=== PATIENT | female | born 1985 | race Caucasian/White ===

== ENCOUNTER 2018-08-09 12:09 | Emergency (ER) | payer OTHER ==
--- NOTE | 2018-08-09 13:51 | ER ---
Nurse's Notes [facility] Name: Angie Kaur Age: 32 yrs Sex: Female : 1985 Arrival Date: 08/09/2018 Time: 12:11 Bed 10 Private MD: Diagnosis: Acute pharyngitis;Otitis media, unspecified, left ear Presentation: 08/09 12:12 Presenting complaint: Patient states: cough and sore throat x 2 days ago. Transition of aa5 care: patient was not received from another setting of care. Onset of symptoms was July 2017. Risk Assessment: Do you want to hurt yourself or someone else? Patient reports no desire to harm self or others. Initial Sepsis Screen: Does the patient meet any 2 criteria? No. Patient's initial sepsis screen is negative. Does the patient have a suspected source of infection? No. Patient's initial sepsis screen is negative. Care prior to arrival: None. 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 - Social history:: Smoking status: Patient uses tobacco products, smokes one-half pack cigarettes per day. - Ebola Screening: : No symptoms or risks identified at this time. Screenin:55 Abuse screen: Denies threats or abuse. Denies injuries from another. Nutritional iw screening: No deficits noted. Tuberculosis screening: No symptoms or risk factors identified. Fall Risk None identified. Assessment: 12:55 General: Appears in no apparent distress. Behavior is calm, cooperative. Pain: iw Complains of pain in throat. Neuro: Level of Consciousness is awake, alert, obeys commands, Moves all extremities. Full function. Respiratory: Airway is patent Respiratory effort is even, unlabored, Breath sounds are clear bilaterally. EENT: Throat is clear is reddened bilaterally with gag reflex present. Musculoskeletal: Range of motion: intact in all extremities. Vital Signs: 12:13 BP 110 / 67; Pulse 99; Resp 18 S; Temp 97.8(TE); Pulse Ox 98% on R/A; Weight 68.04 kg aa5 (R); Height 5 ft. 7 in. (170.18 cm) (R); Pain 7/10; 12:13 Body Mass Index 23.49 (68.04 kg, 170.18 cm) aa5 ED Course: 12:11 Patient arrived in ED. aa5 12:11 Arm band placed on. aa5 12:13 Triage completed. aa5 12:18 Lawrence Mast NP is PHCP. pm1 12:18 Jagdish Stubbs MD is Attending Physician. pm1 12:55 Patient has correct armband on for positive identification. iw 14:00 No provider procedures requiring assistance completed. Patient did not have IV access iw during this emergency room visit. 14:01 Yolie Cobos RN is Primary Nurse. iw Administered Medications: No medications were administered Outcome: 13:51 Discharge ordered by . pm1 14:00 Discharged to home ambulatory. iw 14:00 Condition: good 14:00 Discharge instructions given to patient, Instructed on discharge instructions, follow up and referral plans. medication usage. 14:01 Patient left the ED. iw Signatures: Yolie Cobos RN RN Slime Richards RN RN aa Lawrence Mast NP TAKER OFF BRAKER MACHINE pm1 Corrections: (The following items were deleted from the chart) 14:08 12:14 Slime Richards RN is Primary Nurse. [facility] aa5 14:08 14:01 Primary Nurse role handed off by Slime Richards RN [facility]
--- NOTE | 2018-08-09 13:51 | EDPHYS ---
Physician Documentation [facility] Name: Angie Kaur Age: 32 yrs Sex: Female : 1985 Arrival Date: 08/09/2018 Time: 12:11 Bed 10 Private MD: ED Physician Jagdish Stubbs HPI: 08/09 13:38 This 32 yrs old Female presents to ER via Ambulatory with complaints of Sore pm1 Throat. 13:38 The patient presents with sore throat. The patient describes throat pain as constant, pm1 raw, scratchy. Onset: The symptoms/episode began/occurred 4 day(s) ago. Severity of symptoms: in the emergency department the symptoms are actually worse. Associated signs and symptoms: Pertinent negatives cough, diarrhea, earache, fever, flu-like symptoms, headache, nausea, vomiting. The patient has not recently seen a physician. Son with sore throat onset about 10 days ago that has resolved. 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 - Social history:: Smoking status: Patient uses tobacco products, smokes one-half pack cigarettes per day. - Ebola Screening: : No symptoms or risks identified at this time. ROS: 13:38 Constitutional: Negative for fever, chills, and weight loss, Eyes: Negative for injury, pm1 pain, redness, and discharge. 13:38 Neck: Negative for injury, pain, and swelling, Cardiovascular: Negative for chest pain, palpitations, and edema, Respiratory: Negative for shortness of breath, cough, wheezing, and pleuritic chest pain, Abdomen/GI: Negative for abdominal pain, nausea, vomiting, diarrhea, and constipation, Back: Negative for injury and pain, : Negative for injury, bleeding, discharge, and swelling, MS/Extremity: Negative for injury and deformity, Skin: Negative for injury, rash, and discoloration, Neuro: Negative for headache, weakness, numbness, tingling, and seizure. 13:38 ENT: Positive for drainage from ear(s), ear pain, sore throat, Negative for rhinorrhea, sinus congestion, sinus pain, difficulty swallowing, difficulty handling secretions, hoarseness. Exam: 13:38 Constitutional: This is a well developed, well nourished patient who is awake, alert, pm1 and in no acute distress. Head/Face: Normocephalic, atraumatic. Eyes: Pupils equal round and reactive to light, extra-ocular motions intact. Lids and lashes normal. Conjunctiva and sclera are non-icteric and not injected. Cornea within normal limits. Periorbital areas with no swelling, redness, or edema. 13:38 Neck: Trachea midline, no thyromegaly or masses palpated, and no cervical lymphadenopathy. Supple, full range of motion without nuchal rigidity, or vertebral point tenderness. No Meningismus. Chest/axilla: Normal chest wall appearance and motion. Nontender with no deformity. No lesions are appreciated. Cardiovascular: Regular rate and rhythm with a normal S1 and S2. No gallops, murmurs, or rubs. Normal PMI, no JVD. No pulse deficits. Respiratory: Lungs have equal breath sounds bilaterally, clear to auscultation and percussion. No rales, rhonchi or wheezes noted. No increased work of breathing, no retractions or nasal flaring. Abdomen/GI: Soft, non-tender, with normal bowel sounds. No distension or tympany. No guarding or rebound. No evidence of tenderness throughout. Back: No spinal tenderness. No costovertebral tenderness. Full range of motion. Skin: Warm, dry with normal turgor. Normal color with no rashes, no lesions, and no evidence of cellulitis. MS/ Extremity: Pulses equal, no cyanosis. Neurovascular intact. Full, normal range of motion. 13:38 ENT: External ear(s): are unremarkable, Ear canal(s): are normal, TM's: bulging, on the left, erythema, that is mild, on the left, Examination of the other ear shows no obvious abnormality, Nose: is normal, Mouth: is normal, Posterior pharynx: Tonsils: bilaterally enlarged, with erythema, with exudate, no ulcerations, peritonsillar mass, is not appreciated, pooling of secretions, is not appreciated. 13:38 Neuro: Orientation: is normal, Motor: is normal, Sensation: is normal, no obvious gross deficits. Vital Signs: 12:13 BP 110 / 67; Pulse 99; Resp 18 S; Temp 97.8(TE); Pulse Ox 98% on R/A; Weight 68.04 kg aa5 (R); Height 5 ft. 7 in. (170.18 cm) (R); Pain 7/10; 12:13 Body Mass Index 23.49 (68.04 kg, 170.18 cm) aa5 MDM: 12:19 Patient medically screened. pm1 13:50 Data reviewed: vital signs. Data interpreted: Pulse oximetry: on room air is 98 %. pm1 Interpretation: normal. Counseling: I had a detailed discussion with the patient and/or guardian regarding: the historical points, exam findings, and any diagnostic results supporting the discharge/admit diagnosis, lab results, the need for outpatient follow up, to return to the emergency department if symptoms worsen or persist or if there are any questions or concerns that arise at home. 08/09 12:19 Order name: Strep; Complete Time: 13:21 pm1 08/09 12:19 Order name: Flu; Complete Time: 13:21 pm1 08/09 13:17 Order name: Throat Culture EDMS Administered Medications: No medications were administered Disposition: 14:14 Co-signature as Attending Physician, Jagdish Stubbs MD I agree with the assessment and fernando plan of care. Disposition: 08/09/18 13:51 Discharged to Home. Impression: Acute pharyngitis, Otitis media, unspecified, left ear. - Condition is Stable. - Discharge Instructions: Otitis Media, Adult, Pharyngitis. - Prescriptions for Amoxicillin 500 mg Oral Capsule - take 1 capsule by ORAL route every 8 hours for 10 days; 30 tablet. Zyrtec- D 5-120 mg Oral Tablet Sustained Release 12 hr - take 1 tablet by ORAL route every 12 hours As needed; 20 tablet. - Work release form, Medication Reconciliation Form, Thank You Letter, Antibiotic Education form. - Follow up: Emergency Department; When: As needed; Reason: Worsening of condition. Follow up: Private Physician; When: 2 - 3 days; Reason: Recheck today's complaints, Continuance of care, Re-evaluation by your physician. - Problem is new. - Symptoms have improved. Signatures: Dispatcher [employer] EDMS Jagdish Stubbs MD MD cha Williams, Irene, RN RN Slime Richards RN RN aa5 Lawrence Mast NP PULPER pm1 Corrections: (The following items were deleted from the chart) 14:01 13:51 08/09/2018 13:51 Discharged to Home. Impression: Acute pharyngitis; Otitis media, iw unspecified, left ear. Condition is Stable. Forms are Medication Reconciliation Form, Thank You Letter, Antibiotic Education, Prescription Opioid Use. Follow up: Emergency Department; When: As needed; Reason: Worsening of condition. Follow up: Private Physician; When: 2 - 3 days; Reason: Recheck today's complaints, Continuance of care, Re-evaluation by your physician. Problem is new. Symptoms have improved. pm1
== END 2018-08-09 14:01 | disposition home or self-care (01) ==
LOC: ER 12:09
DX: J02.9 Acute pharyngitis, unspecified (principal); H66.92 Otitis media, unspecified, left ear; F17.210 Nicotine dependence, cigarettes, uncomplicated
CPT/HCPCS: 87070; 87081; 87804; 99281

== ENCOUNTER 2018-09-10 20:12 | Emergency (ER) | payer OTHER ==
--- NOTE | 2018-09-10 20:49 | ER ---
Nurse's Notes [facility] Name: Angie Kaur Age: 32 yrs Sex: Female : 1985 Arrival Date: 09/10/2018 Time: 20:15 Bed 14 Private MD: Diagnosis: Pain in right forearm Presentation: 09/10 20:16 Presenting complaint: Patient states: "I tripped in a pot hole and I landed on my arm, aj1 I skinned my arm and my knee and over the day I noticed my arm getting stiff, and its hard for me to lift anything" Reports that she fell around 0700 this morning. Transition of care: patient was not received from another setting of care. Onset of symptoms was September 10, 2018 at 07:00. Risk Assessment: Do you want to hurt yourself or someone else? Patient reports no desire to harm self or others. Initial Sepsis Screen: Does the patient meet any 2 criteria? No. Patient's initial sepsis screen is negative. Does the patient have a suspected source of infection? No. Patient's initial sepsis screen is negative. Care prior to arrival: None. 20:16 Method Of Arrival: Ambulatory aj1 20:16 Acuity: VAISHNAVI 4 aj1 Triage Assessment: 20:17 General: Appears in no apparent distress. uncomfortable, Behavior is calm, cooperative, aj1 appropriate for age. Pain: Complains of pain in right antecubital area, dorsal aspect of right forearm and right elbow Pain currently is 6 out of 10 on a pain scale. Neuro: Level of Consciousness is awake, alert, obeys commands. Cardiovascular: Patient's skin is warm and dry. Respiratory: Airway is patent Respiratory effort is even, unlabored, Respiratory pattern is regular, symmetrical. Musculoskeletal: Range of motion: limited in right elbow. 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 - Social history:: Smoking status: Patient uses tobacco products, smokes two packs cigarettes per day. - Ebola Screening: : Patient denies travel to an Ebola-affected area in the 21 days before illness onset. Screenin:45 Abuse screen: Denies threats or abuse. Nutritional screening: No deficits noted. tl2 Tuberculosis screening: No symptoms or risk factors identified. Fall Risk None identified. Assessment: 20:45 General: Appears in no apparent distress. Pain: Complains of pain in right hand and tl2 heel of right hand and right arm. Neuro: Level of Consciousness is awake, alert, obeys commands, Oriented to person, place, time, situation. Cardiovascular: Denies chest pain. Respiratory: Airway is patent Respiratory effort is even, unlabored, Respiratory pattern is regular, symmetrical. Derm: Skin is pink, warm \\T\\ dry. Wound noted heel of right hand Wound is blistered and reddened. Injury Description: Abrasion sustained to heel of right hand is scabbed, was sustained 6-12 hours ago. 21:06 Reassessment: Patient appears in no apparent distress at this time. Patient and/or tl2 family updated on plan of care and expected duration. Pain level reassessed. Patient is alert, oriented x 3, equal unlabored respirations, skin warm/dry/pink. pt verbalized understanding of discharge instructions,need for follow up, sling usage and prescription usage. Vital Signs: 20:17 BP 112 / 77; Pulse 87; Resp 18; Temp 98.2; Pulse Ox 98% on R/A; Weight 65.77 kg (R); aj1 Height 5 ft. 7 in. (170.18 cm) (R); Pain 6/10; 20:17 Body Mass Index 22.71 (65.77 kg, 170.18 cm) aj1 ED Course: 20:15 Patient arrived in ED. mr 20:17 Triage completed. aj1 20:17 Arm band placed on Patient placed in an exam room. aj1 20:24 Bethany Souza FNP-C is PHCP. kb 20:24 Jagdish Stubbs MD is Attending Physician. kb 20:40 X-ray completed. Portable x-ray completed in exam room. Patient tolerated procedure az well. 20:41 Forearm Right XRAY In Process Unspecified. EDMS 20:45 Patient has correct armband on for positive identification. Bed in low position. Call tl2 light in reach. Side rails up X 1. Adult w/ patient. 20:45 No provider procedures requiring assistance completed. Patient did not have IV access tl2 during this emergency room visit. 20:47 Destiny March, RN is Primary Nurse. tl2 21:06 Sling applied to right arm. tl2 Administered Medications: 21:02 Drug: Tetanus-Diphtheria Toxoid Adult 0.5 ml {Stockbroker: [employer]. Exp: tl2 07/29/2020. Lot #: [id number]. } Route: IM; Site: right deltoid; 21:07 Follow up: Response: No adverse reaction tl2 Outcome: 20:49 Discharge ordered by . edyta 21:06 Discharged to home ambulatory, with family. tl2 21:06 Condition: stable 21:06 Discharge instructions given to patient, family, Instructed on discharge instructions, follow up and referral plans. medication usage, Demonstrated understanding of instructions, follow-up care, medications, Prescriptions given X 2. 21:07 Patient left the ED. tl2 Signatures: Dispatcher [employer] EDMS Bethany Souza, CHRISTINE-C AWS ARCHITECT-Delaney Mac RN RN toney1 Alma Sanchez Destiny March RN RN tl2 Toña Cortez sd
--- NOTE | 2018-09-10 20:49 | EDPHYS ---
Physician Documentation [facility] Name: Angie Kaur Age: 32 yrs Sex: Female : 1985 Arrival Date: 09/10/2018 Time: 20:15 Bed 14 Private MD: ED Physician Jagdish Stubbs HPI: 09/10 20:31 This 32 yrs old Female presents to ER via Ambulatory with complaints of Arm kb Pain. 20:31 The patient or guardian complains of decreased range of motion, injury, pain. The kb complaints affect the right forearm. Context: The problem was sustained outdoors, resulted from a fall, while walking. Onset: The symptoms/episode began/occurred this morning. Treatment prior to arrival includes: no previous treatment. Modifying factors: The symptoms are alleviated by nothing. the symptoms are aggravated by movement, bending arm. Associated signs and symptoms: Pertinent positives: decreased range of motion, pain. Severity of symptoms: At their worst the symptoms were moderate, in the emergency department the symptoms are unchanged. The patient has not experienced similar symptoms in the past. The patient has not recently seen a physician. 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 - Social history:: Smoking status: Patient uses tobacco products, smokes two packs cigarettes per day. - Ebola Screening: : Patient denies travel to an Ebola-affected area in the 21 days before illness onset. ROS: 20:30 Constitutional: Negative for fever, chills, and weight loss, Cardiovascular: Negative kb for chest pain, palpitations, and edema, Respiratory: Negative for shortness of breath, cough, wheezing, and pleuritic chest pain, Abdomen/GI: Negative for abdominal pain, nausea, vomiting, diarrhea, and constipation, Skin: Negative for injury, rash, and discoloration, Neuro: Negative for headache, weakness, numbness, tingling, and seizure. 20:30 MS/extremity: Positive for injury or acute deformity, decreased range of motion, pain, tenderness, of the right forearm. Exam: 20:30 Constitutional: This is a well developed, well nourished patient who is awake, alert, kb and in no acute distress. Head/Face: Normocephalic, atraumatic. Chest/axilla: Normal chest wall appearance and motion. Nontender with no deformity. No lesions are appreciated. Cardiovascular: Regular rate and rhythm with a normal S1 and S2. No gallops, murmurs, or rubs. Normal PMI, no JVD. No pulse deficits. Respiratory: Lungs have equal breath sounds bilaterally, clear to auscultation and percussion. No rales, rhonchi or wheezes noted. No increased work of breathing, no retractions or nasal flaring. Abdomen/GI: Soft, non-tender, with normal bowel sounds. No distension or tympany. No guarding or rebound. No evidence of tenderness throughout. Neuro: Awake and alert, GCS 15, oriented to person, place, time, and situation. Cranial nerves II-XII grossly intact. Motor strength 5/5 in all extremities. Sensory grossly intact. Cerebellar exam normal. Normal gait. 20:30 Musculoskeletal/extremity: Extremities: grossly normal except: noted in the right forearm: decreased ROM, pain, ROM: limited active range of motion due to pain, in the right elbow, Circulation is intact in all extremities. Sensation intact. 20:31 Skin: injury, abrasion(s), small abrasion noted, of the heel of right hand. Vital Signs: 20:17 BP 112 / 77; Pulse 87; Resp 18; Temp 98.2; Pulse Ox 98% on R/A; Weight 65.77 kg (R); aj1 Height 5 ft. 7 in. (170.18 cm) (R); Pain 6/10; 20:17 Body Mass Index 22.71 (65.77 kg, 170.18 cm) aj1 MDM: 20:24 Patient medically screened. kb 20:29 Data reviewed: vital signs, nurses notes. Data interpreted: Pulse oximetry: on room air kb is 98 %. Interpretation: normal. 20:48 Counseling: I had a detailed discussion with the patient and/or guardian regarding: the kb historical points, exam findings, and any diagnostic results supporting the discharge/admit diagnosis, radiology results, the need for outpatient follow up, a orthopedic surgeon, to return to the emergency department if symptoms worsen or persist or if there are any questions or concerns that arise at home. 09/10 20:28 Order name: Forearm Right XRAY; Complete Time: 21:01 kb 09/10 20:49 Order name: Sling; Complete Time: 21:02 kb Administered Medications: 21:02 Drug: Tetanus-Diphtheria Toxoid Adult 0.5 ml {Clinical Trials Systems Administrator: [employer]. Exp: tl2 07/29/2020. Lot #: [id number]. } Route: IM; Site: right deltoid; 21:07 Follow up: Response: No adverse reaction tl2 Disposition: 09/10/18 20:49 Discharged to Home. Impression: Pain in right forearm. - Condition is Stable. - Discharge Instructions: Musculoskeletal Pain. - Prescriptions for Cyclobenzaprine 10 mg Oral Tablet - take 1 tablet by ORAL route every 8 hours As needed; 21 tablet. Diclofenac Sodium 75 mg Oral Tablet, Delayed Release (E.C.) - take 1 tablet by ORAL route 2 times per day As needed; 30 tablet. - Medication Reconciliation Form, Thank You Letter, Antibiotic Education, Prescription Opioid Use, Work release form form. - Follow up: Emergency Department; When: As needed; Reason: Worsening of condition. Follow up: Private Physician; When: 2 - 3 days; Reason: Recheck today's complaints, Continuance of care, Re-evaluation by your physician. Addendum: 09/13/2018 11:11 Co-signature as Attending Physician, Jagdish Stubbs MD I agree with the assessment and c youngblood plan of care. Signatures: Dispatcher [employer] EDCA Bethany Souza, CHRISTINE-C WATER RESOURCE ENGINEER-Delaney Mac RN RN aj1 Jagdish Stubbs MD MD cha Knox, Taylor, CHARLIE RN tl2 Corrections: (The following items were deleted from the chart) 09/10 20:31 20:30 Constitutional: This is a well developed, well nourished patient who is awake, kb alert, and in no acute distress. Head/Face: Normocephalic, atraumatic. Chest/axilla: Normal chest wall appearance and motion. Nontender with no deformity. No lesions are appreciated. Cardiovascular: Regular rate and rhythm with a normal S1 and S2. No gallops, murmurs, or rubs. Normal PMI, no JVD. No pulse deficits. Respiratory: Lungs have equal breath sounds bilaterally, clear to auscultation and percussion. No rales, rhonchi or wheezes noted. No increased work of breathing, no retractions or nasal flaring. Abdomen/GI: Soft, non-tender, with normal bowel sounds. No distension or tympany. No guarding or rebound. No evidence of tenderness throughout. Skin: Warm, dry with normal turgor. Normal color with no rashes, no lesions, and no evidence of cellulitis. Neuro: Awake and alert, GCS 15, oriented to person, place, time, and situation. Cranial nerves II-XII grossly intact. Motor strength 5/5 in all extremities. Sensory grossly intact. Cerebellar exam normal. Normal gait. kb 21:07 20:49 09/10/2018 20:49 Discharged to Home. Impression: Pain in right forearm. Condition tl2 is Stable. Forms are Medication Reconciliation Form, Thank You Letter, Antibiotic Education, Prescription Opioid Use. Follow up: Emergency Department; When: As needed; Reason: Worsening of condition. Follow up: Private Physician; When: 2 - 3 days; Reason: Recheck today's complaints, Continuance of care, Re-evaluation by your physician. kb
--- NOTE | 2018-09-10 20:57 | RAD REPORT ---
EXAM DESCRIPTION: RAD - Forearm Right - 09/10/2018 8:41 pm CLINICAL HISTORY: Trip and fall, right arm pain COMPARISON: None. FINDINGS: No fracture is identified. There is no dislocation or periosteal reaction noted. No foreign body or other soft tissue abnormality. Multiple surgical clips are present in the antecubi rick fossa. IMPRESSION: Negative right forearm examination for fracture or acute finding.
[2018-09-10] MEDS ORDERED: TETANUS & DIPHTHERIA TOX,ADULT 0.5 ML VIAL ONE (21:03)
== END 2018-09-10 21:07 | disposition home or self-care (01) ==
LOC: ER 20:12
DX: M79.631 Pain in right forearm (principal); F17.210 Nicotine dependence, cigarettes, uncomplicated; Z23 Encounter for immunization
CPT/HCPCS: 90714; 99284

== ENCOUNTER 2019-01-06 14:54 | Emergency (ER) | payer OTHER ==
[2019-01-06] MEDS ORDERED: HYDROCODONE/APAP 5/325 MG TAB ONE (15:28)
[2019-01-06] MEDS ORDERED: IBUPROFEN 400 MG TAB ONE (15:28)
[2019-01-06] MEDS ORDERED: IBUPROFEN 200 MG TAB PO ONE (15:28)
--- NOTE | 2019-01-06 15:34 | RAD REPORT ---
EXAM DESCRIPTION: RAD - Ankle Right 3 View - 01/06/2019 3:28 pm CLINICAL HISTORY: Right ankle pain status post injury FINDINGS: No fracture or dislocation is seen. Soft tissue swelling
--- NOTE | 2019-01-06 15:36 | ER ---
Nurse's Notes [facility] Name: Angie Kaur Age: 33 yrs Sex: Female : 1985 Arrival Date: 01/06/2019 Time: 14:58 Bed 13 Private MD: Diagnosis: Pain in right knee;Pain in right ankle and joints of right foot Presentation: 01/06 14:58 Presenting complaint: Patient states: i was goofing around and tried to kick i think i hj heard on my R knee and R ankle, it happened last night; pain is 9/10;. Transition of care: patient was not received from another setting of care. Onset of symptoms was January 06, 2019. Risk Assessment: Do you want to hurt yourself or someone else? Patient reports no desire to harm self or others. Initial Sepsis Screen: Does the patient meet any 2 criteria? No. Patient's initial sepsis screen is negative. Does the patient have a suspected source of infection? No. Patient's initial sepsis screen is negative. Care prior to arrival: None. 14:58 Method Of Arrival: Ambulatory 14:58 Acuity: VAISHNAVI 4 hj Historical: - Allergies: 14:59 No Known Allergies; hj - PMHx: 14:59 None; hj - PSHx: 14:59 arm surgery; hj - Immunization history:: Adult Immunizations up to date. - Social history:: Smoking status: Patient/guardian denies using tobacco. - Ebola Screening: : Patient negative for fever greater than or equal to 101.5 degrees Fahrenheit, and additional compatible Ebola Virus Disease symptoms Patient denies exposure to infectious person Patient denies travel to an Ebola-affected area in the 21 days before illness onset No symptoms or risks identified at this time. Screenin:48 Abuse screen: Denies threats or abuse. Denies injuries from another. Nutritional aj screening: No deficits noted. Tuberculosis screening: No symptoms or risk factors identified. Fall Risk None identified. Assessment: 15:48 General: Appears in no apparent distress. comfortable, Behavior is calm, cooperative, aj appropriate for age. Pain: Complains of pain in right knee and anterior aspect of right ankle. Neuro: Level of Consciousness is awake, alert, obeys commands, Oriented to person, place, time, situation, Appropriate for age. Respiratory: Airway is patent Respiratory effort is even, unlabored, Respiratory pattern is regular, symmetrical. Derm: Skin is intact, is healthy with good turgor, Skin is pink, warm \T\ dry. normal. Musculoskeletal: Circulation, motion, and sensation intact. Range of motion: intact in all extremities, Swelling absent. Vital Signs: 14:59 BP 109 / 73; Pulse 76; Resp 18; Temp 98.5(TE); Pulse Ox 97% on R/A; Weight 65.77 kg; hj Height 5 ft. 7 in. (170.18 cm); Pain 9/10; 14:59 Body Mass Index 22.71 (65.77 kg, 170.18 cm) ED Course: 14:58 Patient arrived in ED. as 14:59 Triage completed. hj 14:59 Arm band placed on left wrist. hj 15:01 Lawrence Mast NP is PHCP. pm1 15:01 Julian Bradford MD is Attending Physician. pm1 15:01 Lorraine Matson RN is Primary Nurse. aj 15:30 Knee Right 3 View XRAY In Process Unspecified. EDMS 15:30 Ankle Right 3 View XRAY In Process Unspecified. EDMS 15:48 Patient has correct armband on for positive identification. aj 15:48 No provider procedures requiring assistance completed. Patient did not have IV access aj during this emergency room visit. 15:50 Crutch training done. Rinku wrap to right knee air splint to right ankle. aj Administered Medications: 15:12 Drug: Ibuprofen 600 mg Route: PO; aj 15:48 Follow up: Response: Pain is decreased aj 15:12 Drug: Oden 5 mg-325 mg 1 tabs Route: PO; aj 15:47 Follow up: Response: Pain is decreased aj Outcome: 15:36 Discharge ordered by . pm1 15:48 Discharged to home with crutches, with family. aj 15:48 Condition: good 15:48 Discharge instructions given to patient, Instructed on discharge instructions, follow up and referral plans. crutch walking, Demonstrated understanding of instructions, follow-up care, medications, crutch walking, Prescriptions given X 2. 15:51 Patient left the ED. aj Signatures: Dispatcher [employer] EDSC Lorraine Matson RN RN aj Martinez, Amelia as Joaquin, Henry, RN RN Lawrence Mast NP VISUAL INSPECTOR pm1 Corrections: (The following items were deleted from the chart) 15:01 14:59 Pulse 76bpm; Resp 18bpm; Pulse Ox 97% RA; Temp 98.5F Temporal; 65.77 kg; Height 5 hj ft. 7 in.; BMI: 22.7; Pain 9/10; hj
--- NOTE | 2019-01-06 15:36 | EDPHYS ---
Physician Documentation [facility] Name: Angie Kaur Age: 33 yrs Sex: Female : 1985 Arrival Date: 01/06/2019 Time: 14:58 Bed 13 Private MD: ED Physician Julian Bradford HPI: 01/06 15:09 This 33 yrs old Female presents to ER via Ambulatory with complaints of Knee pm1 Pain, Ankle Injury. 15:09 The patient presents with pain. The complaints affect the right ankle and right knee. pm1 Context: The problem was sustained at home, the patient is able to ambulate, Problem is a result from a previous injury: Yes. Patient has issues with right knee in the past. Right knee has popped out and went back into place. This is the third event. Patient was playing around with a friend and was kicking a friend. When she kicked she felt her right knee cap pop and go back in. Right knee is moving full range of motion. Patient with more pain present to right ankle. Patient is able to walk with pain. Onset: The symptoms/episode began/occurred last night. Modifying factors: The symptoms are alleviated by Rest. the symptoms are aggravated by movement, weight bearing. Associated signs and symptoms: Pertinent negatives calf tenderness, fever, numbness, tingling. Treatment prior to arrival includes: no previous treatment. Severity of symptoms: in the emergency department the symptoms are unchanged. The patient has experienced similar episodes in the past, a few times. The patient has not recently seen a physician. Historical: - Allergies: 14:59 No Known Allergies; hj - PMHx: 14:59 None; hj - PSHx: 14:59 arm surgery; hj - Immunization history:: Adult Immunizations up to date. - Social history:: Smoking status: Patient/guardian denies using tobacco. - Ebola Screening: : Patient negative for fever greater than or equal to 101.5 degrees Fahrenheit, and additional compatible Ebola Virus Disease symptoms Patient denies exposure to infectious person Patient denies travel to an Ebola-affected area in the 21 days before illness onset No symptoms or risks identified at this time. ROS: 15:15 Constitutional: Negative for fever, chills, and weight loss, Cardiovascular: Negative pm1 for chest pain, palpitations, and edema, Respiratory: Negative for shortness of breath, cough, wheezing, and pleuritic chest pain, Abdomen/GI: Negative for abdominal pain, nausea, vomiting, diarrhea, and constipation, Back: Negative for injury and pain. 15:15 Eyes: Negative for injury, pain, redness, and discharge, ENT: Negative for injury, pain, and discharge, Neck: Negative for injury, pain, and swelling, Skin: Negative for injury, rash, and discoloration, Neuro: Negative for headache, weakness, numbness, tingling, and seizure. 15:15 MS/extremity: Positive for pain, swelling, of the right knee and right ankle, Negative for deformity, paresthesias. Exam: 15:15 Constitutional: This is a well developed, well nourished patient who is awake, alert, pm1 and in no acute distress. Head/Face: Normocephalic, atraumatic. Chest/axilla: Normal chest wall appearance and motion. Nontender with no deformity. No lesions are appreciated. Cardiovascular: Regular rate and rhythm with a normal S1 and S2. No gallops, murmurs, or rubs. Normal PMI, no JVD. No pulse deficits. Respiratory: Lungs have equal breath sounds bilaterally, clear to auscultation and percussion. No rales, rhonchi or wheezes noted. No increased work of breathing, no retractions or nasal flaring. Back: No spinal tenderness. No costovertebral tenderness. Full range of motion. Skin: Warm, dry with normal turgor. Normal color with no rashes, no lesions, and no evidence of cellulitis. 15:15 Musculoskeletal/extremity: Extremities: grossly normal except: noted in the Medial and lateral aspect of right ankle: tenderness, swelling to medial aspect, noted in the right knee: tenderness, no evidence of decreased ROM, deformity, swelling, Circulation is intact in all extremities. Vital Signs: 14:59 BP 109 / 73; Pulse 76; Resp 18; Temp 98.5(TE); Pulse Ox 97% on R/A; Weight 65.77 kg; hj Height 5 ft. 7 in. (170.18 cm); Pain 9/10; 14:59 Body Mass Index 22.71 (65.77 kg, 170.18 cm) Procedures: 15:50 Splinting: Splint applied to right ankle using Air Cast, applied by nurse. Examined by pm1 me, post splint application: neurovascular intact, 2+ distal pulses palpable, brisk capillary refill noted, Patient tolerated well. MDM: 15:06 Patient medically screened. pm1 15:32 Data reviewed: vital signs. Data interpreted: Pulse oximetry: on room air is 97 %. pm1 Interpretation: normal. 15:33 Counseling: I had a detailed discussion with the patient and/or guardian regarding: the pm1 historical points, exam findings, and any diagnostic results supporting the discharge/admit diagnosis, radiology results, the need for outpatient follow up, for definitive care, a orthopedic surgeon, to return to the emergency department if symptoms worsen or persist or if there are any questions or concerns that arise at home. 15:47 Special discussion: I discussed with the patient the need to follow-up with the pm1 PCP/specialist for the noted incidental finding on X-ray/CT scanning. repeat X-ray in 3 months per radiology recommendations. 01/06 15:08 Order name: Knee Right 3 View XRAY; Complete Time: 15:45 pm1 01/06 15:08 Order name: Ankle Right 3 View XRAY; Complete Time: 15:37 pm1 01/06 15:32 Order name: Crutches pm1 01/06 15:32 Order name: Rinku wrap-joint: Right knee pm1 01/06 15:32 Order name: Aircast Ankle Splint pm1 Administered Medications: 15:12 Drug: Ibuprofen 600 mg Route: PO; aj 15:48 Follow up: Response: Pain is decreased aj 15:12 Drug: [place] 5 mg-325 mg 1 tabs Route: PO; aj 15:47 Follow up: Response: Pain is decreased aj Disposition: 01/07 06:48 Co-signature as Attending Physician, Julian Bradford MD I agree with the assessment and kdr plan of care. Disposition: 01/06/19 15:36 Discharged to Home. Impression: Pain in right knee, Pain in right ankle and joints of right foot. - Condition is Stable. - Discharge Instructions: Cast or Splint Care, Adult, Crutch Use, Knee Pain, Ankle Pain. - Prescriptions for Tylenol- Codeine #3 300-30 mg Oral Tablet - take 2 tablets by ORAL route every 6 hours As needed; 20 tablet. Diclofenac Sodium 75 mg Oral Tablet Sustained Release - take 1 tablet by ORAL route 2 times per day; 30 tablet. - Work release form, Medication Reconciliation Form, Thank You Letter, Antibiotic Education, Prescription Opioid Use form. - Follow up: Emergency Department; When: As needed; Reason: Worsening of condition. Follow up: Private Physician; When: 2 - 3 days; Reason: Recheck today's complaints, Continuance of care, Re-evaluation by your physician. - Problem is new. - Symptoms have improved. Signatures: Dispatcher [employer] EDLorraine Morales RN RN Julian Santana MD MD kdr Joaquin, Henry, RN RN hj Lawrence Mast, SAVANNAH SET STAFF FITTER pm1 Corrections: (The following items were deleted from the chart) 01/06 15:51 15:36 01/06/2019 15:36 Discharged to Home. Impression: Pain in right knee; Pain in aj right ankle and joints of right foot. Condition is Stable. Forms are Medication Reconciliation Form, Thank You Letter, Antibiotic Education, Prescription Opioid Use. Follow up: Emergency Department; When: As needed; Reason: Worsening of condition. Follow up: Private Physician; When: 2 - 3 days; Reason: Recheck today's complaints, Continuance of care, Re-evaluation by your physician. Problem is new. Symptoms have improved. pm1
--- NOTE | 2019-01-06 15:37 | RAD REPORT ---
EXAM DESCRIPTION: RAD - Knee Right 3 View - 01/06/2019 3:28 pm CLINICAL HISTORY: Right knee pain status post injury FINDINGS: No fracture or dislocation is seen. A 16 millimeter area sclerosis overlies the distal femur likely benign. Follow-up x-ray in 3 months r ecommended to assess stability
== END 2019-01-06 15:51 | disposition home or self-care (01) ==
LOC: ER 14:54
DX: M25.561 Pain in right knee (principal); M25.571 Pain in right ankle and joints of right foot
CPT/HCPCS: 99284

== ENCOUNTER 2019-01-09 21:28 | Emergency (ER) | payer OTHER ==
--- NOTE | 2019-01-09 21:47 | ER ---
Nurse's Notes [facility] Name: Angie Kaur Age: 33 yrs Sex: Female : 1985 Arrival Date: 01/09/2019 Time: 21:31 Bed 8 Private MD: Diagnosis: Sprain of lateral collateral ligament of right knee Presentation: 01/09 21:40 Presenting complaint: Patient states: right knee and right ankle pain since . ak1 pt with halie wrap upon arrival. pt seen in ER given crutches, ankle air splint, diclofenac 75mg and tylenol #3. Transition of care: patient was not received from another setting of care. Onset of symptoms is unknown. Risk Assessment: Do you want to hurt yourself or someone else? Patient reports no desire to harm self or others. Initial Sepsis Screen: Does the patient meet any 2 criteria? No. Patient's initial sepsis screen is negative. Does the patient have a suspected source of infection? No. Patient's initial sepsis screen is negative. Care prior to arrival: None. 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 - Social history:: Smoking status: Patient uses tobacco products, smokes two packs cigarettes per day. - Ebola Screening: : No symptoms or risks identified at this time. Screenin:54 Abuse screen: Denies threats or abuse. Nutritional screening: No deficits noted. ea Tuberculosis screening: No symptoms or risk factors identified. Fall Risk None identified. Assessment: 21:56 General: Appears uncomfortable, Behavior is calm, cooperative, appropriate for age. ea Pain: Complains of pain in right leg. Neuro: Level of Consciousness is awake, alert, obeys commands, Oriented to person, place, time, situation. Cardiovascular: Respiratory: Airway is patent Respiratory effort is even, unlabored, Respiratory pattern is regular, symmetrical. Derm: Skin is pink, warm \T\ dry. Musculoskeletal: Reports pain in right leg. 22:27 Reassessment: Patient and/or family updated on plan of care and expected duration. Pain ea level reassessed. Patient is alert, oriented x 3, equal unlabored respirations, skin warm/dry/pink. Discharge instruction given to patient, verbalized the understanding of instruction. Pt left ED via wheelchair per family, pt tolerating well. Vital Signs: 21:42 BP 189 / 168; Pulse 102; Resp 16; Temp 97.8; Pulse Ox 96% on R/A; Weight 65.77 kg (R); ak1 Height 5 ft. 7 in. (170.18 cm) (R); Pain 10/10; 22:15 BP 106 / 60; Pulse 86; Resp 18; Pulse Ox 99% on R/A; ea 21:42 Body Mass Index 22.71 (65.77 kg, 170.18 cm) ak1 ED Course: 21:31 Patient arrived in ED. es 21:34 Tahir Stephenson MD is Attending Physician. tw4 21:42 Triage completed. ak1 21:42 Arm band placed on Patient placed in an exam room, on a stretcher, on pulse oximetry, ak1 Patient notified of wait time. 21:43 Patient has correct armband on for positive identification. Bed in low position. Call ak1 light in reach. Side rails up X 1. Pulse ox on. NIBP on. 22:15 Lynette Dinh RN is Primary Nurse. ea 22:25 Knee immobilizer applied on right knee. ea 22:26 No provider procedures requiring assistance completed. Patient did not have IV access ea during this emergency room visit. 22:31 Primary Nurse role handed off by Lynette Dinh RN bb Administered Medications: 21:54 Drug: Lulu 5 mg-325 mg 1 tabs Route: PO; ea 22:20 Follow up: Response: No adverse reaction; Pain is decreased ea 21:54 Drug: TORadol 60 mg Route: IM; Site: right gluteus; ea 22:20 Follow up: Response: No adverse reaction; Pain is decreased ea 21:56 CANCELLED (Duplicate Order): TORadol 60 mg IM once ea Outcome: 21:46 Discharge ordered by . tw4 22:27 Discharged to home via wheelchair, with family. ea 22:27 Condition: improved 22:27 Discharge instructions given to patient, Instructed on discharge instructions, follow up and referral plans. medication usage, Demonstrated understanding of instructions, follow-up care, medications, Prescriptions given X 1. 22:29 Patient left the ED. preet 22:33 Patient left the ED. bb Signatures: Alina Turk Brenda RN RN Daphney Lawton RN RN ak1 Lynette Dinh RN RN Tahir Colorado MD MD tw4
--- NOTE | 2019-01-09 21:48 | EDPHYS ---
Physician Documentation [facility] Name: Angie Kaur Age: 33 yrs Sex: Female : 1985 Arrival Date: 01/09/2019 Time: 21:31 Bed 8 Private MD: ED Physician Tahir Stephenson HPI: 01/10 05:42 This 33 yrs old Female presents to ER via Ambulatory with complaints of Ankle tw4 Injury, Knee Pain. 05:43 The patient presents with pain, that is acute. The complaints affect the right knee. tw4 Context: The problem was sustained at home. Modifying factors: The symptoms are alleviated by remaining still, the symptoms are aggravated by nothing. Associated signs and symptoms: The patient has no apparent associated signs or symptoms. Severity of symptoms: At their worst the symptoms were moderate, in the emergency department the symptoms are unchanged. The patient has not experienced similar symptoms in the past. 05:43 Onset: The symptoms/episode began/occurred 5 day(s) ago. tw4 05:47 The patient has been recently seen at the [facility] Emergency tw4 Department, last week, for similar complaints X-rays were performed. 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 - Social history:: Smoking status: Patient uses tobacco products, smokes two packs cigarettes per day. - Ebola Screening: : No symptoms or risks identified at this time. ROS: 01/10 05:43 Constitutional: Negative for fever, chills, and weight loss, Cardiovascular: Negative tw4 for chest pain, palpitations, and edema, Respiratory: Negative for shortness of breath, cough, wheezing, and pleuritic chest pain, Abdomen/GI: Negative for abdominal pain, nausea, vomiting, diarrhea, and constipation, Back: Negative for injury and pain. : MS/extremity: Positive for injury or acute deformity, decreased range of motion, swelling, tenderness. 05:47 Skin: Negative for injury, rash, and discoloration, Neuro: Negative for headache, tw4 weakness, numbness, tingling, and seizure. Exam: 05:47 Constitutional: This is a well developed, well nourished patient who is awake, alert, tw4 and in no acute distress. Head/Face: Normocephalic, atraumatic. Chest/axilla: Normal chest wall appearance and motion. Nontender with no deformity. No lesions are appreciated. Cardiovascular: Regular rate and rhythm with a normal S1 and S2. No gallops, murmurs, or rubs. Normal PMI, no JVD. No pulse deficits. Respiratory: Lungs have equal breath sounds bilaterally, clear to auscultation and percussion. No rales, rhonchi or wheezes noted. No increased work of breathing, no retractions or nasal flaring. Abdomen/GI: Soft, non-tender, with normal bowel sounds. No distension or tympany. No guarding or rebound. No evidence of tenderness throughout. Skin: Warm, dry with normal turgor. Normal color with no rashes, no lesions, and no evidence of cellulitis. Neuro: Awake and alert, GCS 15, oriented to person, place, time, and situation. Cranial nerves II-XII grossly intact. Motor strength 5/5 in all extremities. Sensory grossly intact. Cerebellar exam normal. Normal gait. 05:47 Musculoskeletal/extremity: Extremities: noted in the lateral aspect of right knee, posterior aspect of right knee, medial aspect of right knee and right knee: pain. Vital Signs: 01/09 21:42 BP 189 / 168; Pulse 102; Resp 16; Temp 97.8; Pulse Ox 96% on R/A; Weight 65.77 kg (R); ak1 Height 5 ft. 7 in. (170.18 cm) (R); Pain 10/10; 22:15 BP 106 / 60; Pulse 86; Resp 18; Pulse Ox 99% on R/A; ea 21:42 Body Mass Index 22.71 (65.77 kg, 170.18 cm) ak1 Procedures: 01/10 05:48 Splinting: Splint applied to lateral aspect of right knee, posterior aspect of right tw4 knee, medial aspect of right knee and right knee using knee immobilizer, applied by nurse. Examined by me, post splint application: neurovascular intact, 2+ distal pulses palpable, brisk capillary refill noted, Patient tolerated. MDM: 01/09 21:34 Patient medically screened. tw4 01/10 05:48 Differential diagnosis: dislocation, contusion. Data reviewed: vital signs, nurses tw4 notes. Counseling: I had a detailed discussion with the patient and/or guardian regarding: the historical points, exam findings, and any diagnostic results supporting the discharge/admit diagnosis. Medication response: Toradol partially relieved the patient's pain. Response to treatment: the patient's symptoms have markedly improved after treatment, and as a result, I will discharge patient. 01/09 21:43 Order name: Knee Immobilizer; Complete Time: 22:30 ea Administered Medications: 01/09 21:54 Drug: [place] 5 mg-325 mg 1 tabs Route: PO; ea 22:20 Follow up: Response: No adverse reaction; Pain is decreased ea 21:54 Drug: TORadol 60 mg Route: IM; Site: right gluteus; ea 22:20 Follow up: Response: No adverse reaction; Pain is decreased ea 21:56 CANCELLED (Duplicate Order): TORadol 60 mg IM once ea Disposition: 01/09/19 21:46 Discharged to Home. Impression: Sprain of lateral collateral ligament of right knee. - Condition is Stable. - Discharge Instructions: Knee Sprain, [id number]. - Prescriptions for Tramadol 50 mg Oral Tablet - take 1 tablet by ORAL route every 8 hours as needed; 12 tablet. - Work release form, Medication Reconciliation Form, Thank You Letter, Antibiotic Education, Prescription Opioid Use form. - Follow up: Private Physician; When: Upon discharge from the Emergency Department; Reason: If symptoms return, Recheck today's complaints, Continuance of care. - Problem is new. - Symptoms have improved. Signatures: La Nena Jordan RN Daphney Priest RN RN [email or web address] Lynette Dinh RN RN ea Wadley, Terrence, MD MD tw4 Corrections: (The following items were deleted from the chart) 21:56 21:45 TORadol 60 mg IM once ordered. tw4 ea 22:29 21:46 01/09/2019 21:46 Discharged to Home. Impression: Sprain of lateral collateral ea ligament of right knee. Condition is Stable. Forms are Medication Reconciliation Form, Thank You Letter, Antibiotic Education, Prescription Opioid Use. Follow up: Private Physician; When: Upon discharge from the Emergency Department; Reason: If symptoms return, Recheck today's complaints, Continuance of care. Problem is new. Symptoms have improved. tw4 22:33 22:29 01/09/2019 21:46 Discharged to Home. Impression: Sprain of lateral collateral bb ligament of right knee. Condition is Stable. Discharge Instructions: Knee Sprain, [id number]. Prescriptions for Tramadol 50 mg Oral Tablet - take 1 tablet by ORAL route every 8 hours as needed; 12 tablet. and Forms are Medication Reconciliation Form, Thank You Letter, Antibiotic Education, Prescription Opioid Use, Work release form. Follow up: Private Physician; When: Upon discharge from the Emergency Department; Reason: If symptoms return, Recheck today's complaints, Continuance of care. Problem is new. Symptoms have improved. 01/10 05:46 05:43 Onset: The symptoms/episode began/occurred today, tw4 tw4
[2019-01-09] MEDS ORDERED: HYDROCODONE/APAP 5/325 MG TAB ONE (22:09)
[2019-01-09] MEDS ORDERED: KETOROLAC 30 MG/ML INJ ONE (22:09)
== END 2019-01-09 22:33 | disposition home or self-care (01) ==
LOC: ER 21:28
DX: S83.421A Sprain of lateral collateral ligament of right knee, initial encounter (principal); F17.210 Nicotine dependence, cigarettes, uncomplicated
CPT/HCPCS: 96372; 99284

== ENCOUNTER 2019-04-24 00:38 | Emergency (ER) | payer OTHER ==
[2019-04-24] MEDS ORDERED: PHENAZOPYRIDINE 100MG TAB PO ONE (01:05)
[2019-04-24] MEDS ORDERED: SMZ./TMP. 800/160 MG TABLET ONE (01:05)
[2019-04-24] MEDS ORDERED: HYDROCODONE/APAP 7.5/325 MG TAB ONE (01:06)
--- NOTE | 2019-04-24 01:07 | EDPHYS ---
[facility] Name: Angie Kaur Age: 33 yrs Sex: Female : 1985 Arrival Date: 04/24/2019 Time: 00:45 Bed 6 Private MD: ED Physician Julian Bradford HPI: 04/24 01:04 This 33 yrs old Female presents to ER via Ambulatory with complaints of Pain kdr With Urination, Possible UTI. 01:04 The patient presents with pelvic pain, urinary symptoms, dysuria, frequency, urgency. kdr Onset: The symptoms/episode began/occurred suddenly, just prior to arrival, 1.5 hour(s) ago. Modifying factors: The symptoms are alleviated by nothing, the symptoms are aggravated by urinating. Associated signs and symptoms: The patient has no apparent associated signs or symptoms. Severity of symptoms: At their worst the symptoms were moderate, severe, just prior to arrival, in the emergency department the symptoms are unchanged. The patient's method of control includes nothing. The patient has experienced similar episodes in the past, multiple times, but today's symptoms are worse, more painful. The patient has not recently seen a physician. 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 - Social history:: Smoking status: Patient uses tobacco products, smokes one-half pack cigarettes per day, smokes two packs cigarettes per day. Patient uses alcohol, occasionally. Patient/guardian denies using street drugs. - Ebola Screening: : Patient negative for fever greater than or equal to 101.5 degrees Fahrenheit, and additional compatible Ebola Virus Disease symptoms Patient denies exposure to infectious person Patient denies travel to an Ebola-affected area in the 21 days before illness onset. ROS: 01:04 Constitutional: Negative for fever, chills, and weight loss, Eyes: Negative for injury, kdr pain, redness, and discharge, ENT: Negative for injury, pain, and discharge, Neck: Negative for injury, pain, and swelling, Cardiovascular: Negative for chest pain, palpitations, and edema, Respiratory: Negative for shortness of breath, cough, wheezing, and pleuritic chest pain, Abdomen/GI: Negative for abdominal pain, nausea, vomiting, diarrhea, and constipation, Back: Negative for injury and pain, MS/Extremity: Negative for injury and deformity, Skin: Negative for injury, rash, and discoloration, Neuro: Negative for headache, weakness, numbness, tingling, and seizure activity. Psych: Negative for depression, anxiety, suicide ideation, homicidal ideation, and hallucinations, Allergy/Immunology: Negative for hives, rash, and allergies, Endocrine: Negative for neck swelling, polydipsia, polyuria, polyphagia, and marked weight changes, Hematologic/Lymphatic: Negative for swollen nodes, abnormal bleeding, and unusual bruising. 01:04 : Positive for urinary symptoms, pelvic pain, burning with urination, Negative for flank pain, vaginal discharge, vaginal itching, menstrual abnormality, missed period. Exam: 01:04 Constitutional: This is a well developed, well nourished patient who is awake, alert, kdr and in no acute distress. Head/Face: Normocephalic, atraumatic. Eyes: Pupils equal round and reactive to light, extra-ocular motions intact. Lids and lashes normal. Conjunctiva and sclera are non-icteric and not injected. Cornea within normal limits. Periorbital areas with no swelling, redness, or edema. Neck: Trachea midline, no thyromegaly or masses palpated, and no cervical lymphadenopathy. Supple, full range of motion without nuchal rigidity, or vertebral point tenderness. No Meningismus. Chest/axilla: Normal chest wall appearance and motion. Nontender with no deformity. No lesions are appreciated. Cardiovascular: Regular rate and rhythm with a normal S1 and S2. No gallops, murmurs, or rubs. Normal PMI, no JVD. No pulse deficits. Respiratory: Lungs have equal breath sounds bilaterally, clear to auscultation and percussion. No rales, rhonchi or wheezes noted. No increased work of breathing, no retractions or nasal flaring. Abdomen/GI: Soft, non-tender, with normal bowel sounds. No distension or tympany. No guarding or rebound. No evidence of tenderness throughout. Back: No spinal tenderness. No costovertebral tenderness. Full range of motion. Skin: Warm, dry with normal turgor. Normal color with no rashes, no lesions, and no evidence of cellulitis. MS/ Extremity: Pulses equal, no cyanosis. Neurovascular intact. Full, normal range of motion. Neuro: Awake and alert, GCS 15, oriented to person, place, time, and situation. Cranial nerves II-XII grossly intact. Motor strength 5/5 in all extremities. Sensory grossly intact. Cerebellar exam normal. Normal gait. Psych: Awake, alert, with orientation to person, place and time. Behavior, mood, and affect are within normal limits. Vital Signs: 00:55 BP 111 / 86; Pulse 88; Resp 19; Temp 97.9; Pulse Ox 98% ; Weight 74.84 kg; Height 5 ft. rr5 7 in. (170.18 cm); Pain 10/10; 01:44 BP 99 / 60; Pulse 85; Resp 16; Temp 97.8; Pulse Ox 99% ; Pain 0/10; rr5 00:55 Body Mass Index 25.84 (74.84 kg, 170.18 cm) rr5 MDM: 01:04 Data reviewed: vital signs, nurses notes, lab test result(s). Counseling: I had a kdr detailed discussion with the patient and/or guardian regarding: the historical points, exam findings, and any diagnostic results supporting the discharge/admit diagnosis, lab results, the need for outpatient follow up. 01:07 Patient medically screened. kdr 04/24 01:15 Order name: Urine Microscopic Only rr5 04/24 01:15 Order name: Urine Culture rr5 04/24 01:23 Order name: Urine Dipstick--Ancillary (enter results) ar5 04/24 01:23 Order name: Urine --Ancillary (enter results) ar5 Administered Medications: 01:08 Drug: Pyridium 200 mg Route: PO; rr5 01:43 Follow up: Response: No adverse reaction; Pain is decreased rr5 01:08 Drug: Bactrim (160 mg-800 mg (DS) 1 tablet Route: PO; rr5 01:43 Follow up: Response: No adverse reaction rr5 01:08 Drug: [place] (7.5 mg-325 mg) 1 tabs {Note: rass 0.} Route: PO; rr5 01:43 Follow up: Response: No adverse reaction; Marked relief of symptoms; RASS: Alert and rr5 Calm (0) Disposition: 04/24/19 01:07 Discharged to Home. Impression: Urinary tract infection, site not specified, Urethritis and urethral syndrome. - Condition is Stable. - Discharge Instructions: Dysuria, Urinary Tract Infection, Adult, [id number]. - Prescriptions for Pyridium 200 mg Oral Tablet - take 1 tablet by ORAL route every 8 hours for 3 days; 9 tablet. Tramadol 50 mg Oral Tablet - take 1 tablet by ORAL route every 8 hours as needed; 12 tablet. Bactrim DS 800- 160 mg Oral Tablet - take 1 tablet by ORAL route every 12 hours for 10 days; 20 tablet. - Medication Reconciliation Form, Thank You Letter, Antibiotic Education, Prescription Opioid Use form. - Follow up: Private Physician; When: 2 - 3 days; Reason: If symptoms return, Further diagnostic work-up, Recheck today's complaints, Continuance of care, Re-evaluation by your physician. - Problem is new. - Symptoms have improved. Signatures: Dispatcher [employer] EDTX Julian Bradford MD MD [facility] Emmanuel Caro RN RN rr5 Corrections: (The following items were deleted from the chart) 01:45 01:07 04/24/2019 01:07 Discharged to Home. Impression: Urinary tract infection, site rr5 not specified; Urethritis and urethral syndrome. Condition is Stable. Forms are Medication Reconciliation Form, Thank You Letter, Antibiotic Education, Prescription Opioid Use. Follow up: Private Physician; When: 2 - 3 days; Reason: If symptoms return, Further diagnostic work-up, Recheck today's complaints, Continuance of care, Re-evaluation by your physician. Problem is new. Symptoms have improved. kdr
--- NOTE | 2019-04-24 01:07 | ER ---
Nurse's Notes [facility] Name: Angie Kaur Age: 33 yrs Sex: Female : 1985 Arrival Date: 04/24/2019 Time: 00:45 Bed 6 Private MD: Diagnosis: Urinary tract infection, site not specified;Urethritis and urethral syndrome Presentation: 04/24 00:55 Presenting complaint: Patient states: burning sensation I felt at the end of my pee. rr5 felt pain on my pelvic area going to my vagina when you press it started 1 1/2 hour ago. pain score 10/10. denies nausea, vomiting or fever. 00:55 Transition of care: patient was not received from another setting of care. Onset of rr5 symptoms was April 24, 2019. Risk Assessment: Do you want to hurt yourself or someone else? Patient reports no desire to harm self or others. Initial Sepsis Screen: Does the patient meet any 2 criteria? No. Patient's initial sepsis screen is negative. Does the patient have a suspected source of infection? No. Patient's initial sepsis screen is negative. Care prior to arrival: None. 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 - Social history:: Smoking status: Patient uses tobacco products, smokes one-half pack cigarettes per day, smokes two packs cigarettes per day. Patient uses alcohol, occasionally. Patient/guardian denies using street drugs. - Ebola Screening: : Patient negative for fever greater than or equal to 101.5 degrees Fahrenheit, and additional compatible Ebola Virus Disease symptoms Patient denies exposure to infectious person Patient denies travel to an Ebola-affected area in the 21 days before illness onset. Screenin:18 Abuse screen: Denies threats or abuse. Denies injuries from another. Nutritional rr5 screening: No deficits noted. Tuberculosis screening: No symptoms or risk factors identified. Fall Risk None identified. Total Davis Fall Scale indicates No Risk (0-24 pts). Assessment: 01:10 General: Appears in no apparent distress. uncomfortable, Behavior is calm, cooperative, rr5 appropriate for age. 01:10 Pain: Complains of pain in pelvis Pain radiates to vagina Pain currently is 10 out of rr5 10 on a pain scale. Quality of pain is described as burning, crampy, Pain began suddenly, Is intermittent. Neuro: Level of Consciousness is awake, alert, obeys commands, Oriented to person, place, time, situation, Appropriate for age. Cardiovascular: Capillary refill < 3 seconds Patient's skin is warm and dry. Respiratory: Airway is patent Respiratory effort is even, unlabored, Respiratory pattern is regular, symmetrical. GI: No signs and/or symptoms were reported involving the gastrointestinal system. Patient currently denies nausea, vomiting. : Urine is cloudy, Reports burning with urination, cramping, pain in suprapubic area lower quadrant(s) with urination, Pain is 10 out of 10 on a pain scale. urgency. EENT: No signs and/or symptoms were reported regarding the EENT system. Derm: Skin is intact, Skin temperature is warm. Musculoskeletal: Circulation, motion, and sensation intact. Capillary refill < 3 seconds. 01:44 Reassessment: Patient appears in no apparent distress at this time. Patient is alert, rr5 oriented x 3, equal unlabored respirations, skin warm/dry/pink. discharge instruction given and explained without complaints made, verbalized understanding. Patient denies pain at this time. Patient states feeling better. Patient states symptoms have improved. Vital Signs: 00:55 BP 111 / 86; Pulse 88; Resp 19; Temp 97.9; Pulse Ox 98% ; Weight 74.84 kg; Height 5 ft. rr5 7 in. (170.18 cm); Pain 10/10; 01:44 BP 99 / 60; Pulse 85; Resp 16; Temp 97.8; Pulse Ox 99% ; Pain 0/10; rr5 00:55 Body Mass Index 25.84 (74.84 kg, 170.18 cm) rr5 ED Course: 00:45 Patient arrived in ED. cf2 00:52 Julian Bradford MD is Attending Physician. kdr 00:55 Arm band placed on. rr5 01:00 Triage completed. rr5 01:10 Patient has correct armband on for positive identification. Bed in low position. Call rr5 light in reach. Pulse ox on. NIBP on. 01:11 Emmanuel Caro, RN is Primary Nurse. rr5 01:44 No provider procedures requiring assistance completed. Patient did not have IV access rr5 during this emergency room visit. Administered Medications: 01:08 Drug: Pyridium 200 mg Route: PO; rr5 01:43 Follow up: Response: No adverse reaction; Pain is decreased rr5 01:08 Drug: Bactrim (160 mg-800 mg (DS) 1 tablet Route: PO; rr5 01:43 Follow up: Response: No adverse reaction rr5 01:08 Drug: [place] (7.5 mg-325 mg) 1 tabs {Note: rass 0.} Route: PO; rr5 01:43 Follow up: Response: No adverse reaction; Marked relief of symptoms; RASS: Alert and rr5 Calm (0) Outcome: 01:07 Discharge ordered by . kdr 01:44 Discharged to home ambulatory, with family. rr5 01:44 Condition: stable 01:44 Discharge instructions given to patient, Instructed on discharge instructions, follow up and referral plans. medication usage, Demonstrated understanding of instructions, follow-up care, medications, Prescriptions given X 3. 01:45 Patient left the ED. rr5 Addendum: 04/27/2019 07:40 Addendum: Culture Results: Positive urine culture. No further action required. Bacteria i w sensitive to prescribed antibiotic. Signatures: Julian Bradford MD MD [facility] [address] Yolie Cobos RN RN Emmanuel Caro, CHARLIE RN rr5 Gayathri Russ cf2
[2019-04-24 01:53] VITALS: BP 99/60; TEMP 97.8; O2SAT 99
[2019-04-24 01:58] LABS: Urine Blood 2+ (NEG); Urine Glucose NEGATIVE (NEG); Urine Protein 2+ (NEG); Urine Specific Gravity >1.030 (1.005-1.030)
[2019-04-24 01:59] LABS: Urine Culture Reflex Order NOT NEEDED
[2019-04-24 02:10] LABS: Urine Bacteria 20-50 /HPF (<20)
== END 2019-04-24 01:45 | disposition home or self-care (01) ==
LOC: ER 00:38
DX: N39.0 Urinary tract infection, site not specified (principal); F17.210 Nicotine dependence, cigarettes, uncomplicated
CPT/HCPCS: 81003; 81015; 81025; 87077; 87086; 87088; 87186; 99283

== ENCOUNTER 2019-05-04 20:11 | Emergency (ER) | payer OTHER ==
[2019-05-04] MEDS ORDERED: HYDROCODONE/APAP 7.5/325 MG TAB ONE (21:44)
--- NOTE | 2019-05-04 21:50 | ER ---
Nurse's Notes [facility] Name: Angie Kaur Age: 33 yrs Sex: Female : 1985 Arrival Date: 05/04/2019 Time: 20:22 Bed 12 Private MD: Diagnosis: Laceration without foreign body of left upper arm Presentation: 05/04 20:24 Presenting complaint: Patient states: "I went to the doctor to get my implant taken out aj1 and its hurting real bad, and I think it needs stitching. They put some stuff in it to make it stop bleeding." Patient reports that she had the implant taken out yesterday at 1600. Wound noted to left upper arm. No bleeding noted at this time. Transition of care: patient was not received from another setting of care. Complicating Factors: There are no complicating factors for this patient. Onset of symptoms was May 03, 2019. Risk Assessment: Do you want to hurt yourself or someone else? Patient reports no desire to harm self or others. Initial Sepsis Screen: Does the patient meet any 2 criteria? No. Patient's initial sepsis screen is negative. Does the patient have a suspected source of infection? No. Patient's initial sepsis screen is negative. Care prior to arrival: None. 20:24 Method Of Arrival: Ambulatory aj1 20:24 Acuity: VAISHNAVI 4 aj1 Triage Assessment: 20:25 General: Appears in no apparent distress. comfortable, Behavior is calm, cooperative, aj1 appropriate for age. Pain: Complains of pain in left arm Pain currently is 10 out of 10 on a pain scale. Neuro: Level of Consciousness is awake, alert, obeys commands. Cardiovascular: Patient's skin is warm and dry. Respiratory: Airway is patent Respiratory effort is even, unlabored, Respiratory pattern is regular, symmetrical. 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 - Social history:: Smoking status: Patient uses tobacco products, smokes three packs cigarettes per day. - Ebola Screening: : Patient denies travel to an Ebola-affected area in the 21 days before illness onset. Screenin:35 Nutritional screening: No deficits noted. Tuberculosis screening: No symptoms or risk aa1 factors identified. Fall Risk None identified. Assessment: 21:35 General: Appears in no apparent distress. comfortable, Behavior is calm, cooperative, aa1 appropriate for age. Pain: Complains of pain in left upper arm Quality of pain is described as tender, Pain began 1 day ago. Is continuous. Neuro: Level of Consciousness is awake, alert, obeys commands, Oriented to person, place, time, situation, Moves all extremities. Full function Gait is steady. Respiratory: Airway is patent Respiratory effort is even, unlabored, Respiratory pattern is regular, symmetrical. GI: No signs and/or symptoms were reported involving the gastrointestinal system. : No signs and/or symptoms were reported regarding the genitourinary system. EENT: No signs and/or symptoms were reported regarding the EENT system. Derm: Skin is intact, is healthy with good turgor, Skin is pink, warm \\T\\ dry. Musculoskeletal: Circulation, motion, and sensation intact. Capillary refill < 3 seconds, Range of motion: intact in all extremities. Injury Description: incisional wound x 2 noted to L upper arm from control implant removal. 21:52 Reassessment: Patient appears in no apparent distress at this time. Patient is alert, aa1 oriented x 3, equal unlabored respirations, skin warm/dry/pink. Discussed d/c \\T\\ f/u instructions with pt; denies questions or concerns at this time. Ambulatory to lobby with steady gait. Vital Signs: 20:25 BP 112 / 83; Pulse 81; Resp 18; Temp 97.6; Pulse Ox 98% on R/A; Weight 74.84 kg (R); aj1 Height 5 ft. 7 in. (170.18 cm) (R); Pain 10/10; 20:25 Body Mass Index 25.84 (74.84 kg, 170.18 cm) aj1 ED Course: 20:22 Patient arrived in ED. ds1 20:25 Triage completed. aj1 20:25 Arm band placed on Patient placed in waiting room, Patient notified of wait time. aj1 20:42 Bethany Souza FNP-C [facility]. kb 20:42 Tahir Stephenson MD is Attending Physician. kb 21:35 Patient has correct armband on for positive identification. Bed in low position. Call aa1 light in reach. 21:41 Soha Noonan, RN is Primary Nurse. aa1 21:45 Dressings: Steri strips 1/4 " X 1;. Wound care: to Incisional wound located on left aa1 upper arm was cleaned with Hibiclens, Patient tolerated well. 21:52 No provider procedures requiring assistance completed. Patient did not have IV access aa1 during this emergency room visit. Administered Medications: 21:45 Drug: [place] (7.5 mg-325 mg) 1 tabs Route: PO; aa1 21:52 Follow up: Response: No adverse reaction; Medication administered at discharge.; RASS: aa1 Alert and Calm (0) Outcome: 21:49 Discharge ordered by . kb 21:52 Discharged to home ambulatory, with significant other. aa1 21:52 Condition: good 21:52 Discharge instructions given to patient, significant other, Instructed on discharge instructions, follow up and referral plans. medication usage, wound care, Demonstrated understanding of instructions, follow-up care, medications, wound care. 21:54 Patient left the ED. aa1 Signatures: Bethany Souza, LABORER YARD-C LABORER YARD-Delaney Mac RN RN aj1 Soha Noonan, CHARLIE RN aa1 Aimee Echevarria ds1
--- NOTE | 2019-05-04 21:50 | EDPHYS ---
Physician Documentation [facility] Name: Angie Kaur Age: 33 yrs Sex: Female : 1985 Arrival Date: 05/04/2019 Time: 20:22 Bed 12 Private MD: ED Physician Tahir Stephenson HPI: 05/04 21:46 This 33 yrs old Female presents to ER via Ambulatory with complaints of kb Laceration To Arm. 21:46 The patient has a laceration related to: nexplanon removal occurred at an office, and kb there are no complicating factors. The laceration(s) is(are) located on the left upper arm. Onset: The symptoms/episode began/occurred yesterday. Associated signs and symptoms: The patient has no apparent associated signs or symptoms. The patient has not experienced similar symptoms in the past. The patient has not recently seen a physician. Pt reports she went to have her implant removed yesterday and the doctor made two incisions. Pt was told not to remove dressing until today and when she removed it she thought she may need stitches so she came in. Also complains of pain to site. Educated that too much time has passed to close wound with sutures, but to keep clean and covered to prevent infection and allow for healing.. 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 - Social history:: Smoking status: Patient uses tobacco products, smokes three packs cigarettes per day. - Ebola Screening: : Patient denies travel to an Ebola-affected area in the 21 days before illness onset. ROS: 21:43 Constitutional: Negative for fever, chills, and weight loss, Neck: Negative for injury, kb pain, and swelling, Cardiovascular: Negative for chest pain, palpitations, and edema, Respiratory: Negative for shortness of breath, cough, wheezing, and pleuritic chest pain, Abdomen/GI: Negative for abdominal pain, nausea, vomiting, diarrhea, and constipation, Back: Negative for injury and pain, MS/Extremity: Negative for injury and deformity, Neuro: Negative for headache, weakness, numbness, tingling, and seizure. 21:43 Skin: Positive for laceration(s), of the left upper arm. Exam: 21:43 Constitutional: This is a well developed, well nourished patient who is awake, alert, kb and in no acute distress. Head/Face: Normocephalic, atraumatic. Neck: Trachea midline, no thyromegaly or masses palpated, and no cervical lymphadenopathy. Supple, full range of motion without nuchal rigidity, or vertebral point tenderness. No Meningismus. Chest/axilla: Normal chest wall appearance and motion. Nontender with no deformity. No lesions are appreciated. Cardiovascular: Regular rate and rhythm with a normal S1 and S2. No gallops, murmurs, or rubs. Normal PMI, no JVD. No pulse deficits. Respiratory: Lungs have equal breath sounds bilaterally, clear to auscultation and percussion. No rales, rhonchi or wheezes noted. No increased work of breathing, no retractions or nasal flaring. Abdomen/GI: Soft, non-tender, with normal bowel sounds. No distension or tympany. No guarding or rebound. No evidence of tenderness throughout. Back: No spinal tenderness. No costovertebral tenderness. Full range of motion. MS/ Extremity: Pulses equal, no cyanosis. Neurovascular intact. Full, normal range of motion. Neuro: Awake and alert, GCS 15, oriented to person, place, time, and situation. Cranial nerves II-XII grossly intact. Motor strength 5/5 in all extremities. Sensory grossly intact. Cerebellar exam normal. Normal gait. 21:43 Skin: injury, laceration(s), the wound is approximately 2 cm(s), of the left upper arm, that can be described as clean, no foreign body, linear, without bleeding. Vital Signs: 20:25 BP 112 / 83; Pulse 81; Resp 18; Temp 97.6; Pulse Ox 98% on R/A; Weight 74.84 kg (R); aj1 Height 5 ft. 7 in. (170.18 cm) (R); Pain 10/10; 20:25 Body Mass Index 25.84 (74.84 kg, 170.18 cm) aj1 MDM: 21:27 Patient medically screened. kb 21:42 Data reviewed: vital signs, nurses notes. Data interpreted: Pulse oximetry: on room air kb is 98 %. Interpretation: normal. Counseling: I had a detailed discussion with the patient and/or guardian regarding: the historical points, exam findings, and any diagnostic results supporting the discharge/admit diagnosis, the need for outpatient follow up, a family practitioner, to return to the emergency department if symptoms worsen or persist or if there are any questions or concerns that arise at home. 21:45 ED course: Educated to continue Bactrim that was prescribed yesterday and keep wounds kb clean. . 05/04 21:41 Order name: Wound Care; Complete Time: 21:52 kb Administered Medications: 21:45 Drug: [place] (7.5 mg-325 mg) 1 tabs Route: PO; aa1 21:52 Follow up: Response: No adverse reaction; Medication administered at discharge.; RASS: aa1 Alert and Calm (0) Disposition: 05/05 05:16 Co-signature as Attending Physician, Tahir Stephenson MD I agree with the assessment and tw4 plan of care. Disposition: 05/04/19 21:49 Discharged to Home. Impression: Laceration without foreign body of left upper arm. - Condition is Stable. - Discharge Instructions: Laceration Care, Adult, [id number]. - Medication Reconciliation Form, Thank You Letter, Antibiotic Education, Prescription Opioid Use form. - Follow up: Emergency Department; When: As needed; Reason: Worsening of condition. Follow up: Private Physician; When: 2 - 3 days; Reason: Recheck today's complaints, Continuance of care, Re-evaluation by your physician. Signatures: Bethany Souza, CHRISTINE-C COURT CRIER-Delaney Mac RN RN aj1 Soha Noonan RN RN aa1 Tahir Stephenson MD MD tw4 Corrections: (The following items were deleted from the chart) 05/04 21:54 21:49 05/04/2019 21:49 Discharged to Home. Impression: Laceration without foreign body aa1 of left upper arm. Condition is Stable. Forms are Medication Reconciliation Form, Thank You Letter, Antibiotic Education, Prescription Opioid Use. Follow up: Emergency Department; When: As needed; Reason: Worsening of condition. Follow up: Private Physician; When: 2 - 3 days; Reason: Recheck today's complaints, Continuance of care, Re-evaluation by your physician. kb
[2019-05-05 01:07] VITALS: BP 112/83; TEMP 97.6; O2SAT 98
== END 2019-05-04 21:54 | disposition home or self-care (01) ==
LOC: ER 20:11
DX: S41.112A Laceration without foreign body of left upper arm, initial encounter (principal); F17.210 Nicotine dependence, cigarettes, uncomplicated; Z98.890 Other specified postprocedural states
CPT/HCPCS: 99283

== ENCOUNTER 2019-07-01 18:08 | Emergency (ER) | payer OTHER ==
--- NOTE | 2019-07-01 19:34 | ER ---
Nurse's Notes [facility] Name: Angie Kaur Age: 33 yrs Sex: Female : 1985 Arrival Date: 07/01/2019 Time: 18:11 Bed 20 Private MD: Diagnosis: Internal derangement of knee;Acute bronchitis Presentation: 07/01 19:00 Presenting complaint: Patient states: "I got several things the first thing is Im sick, aj1 sneezing, coughing and a stuffy nose but I think that its almost done with that, its been going on 3 weeks now. I have a stabbing pain in my back everytime that I breathe. And this is the 7th time I've literally popped my knee out of place". Transition of care: patient was not received from another setting of care. Onset of symptoms was 2019. Risk Assessment: Do you want to hurt yourself or someone else? Patient reports no desire to harm self or others. Initial Sepsis Screen: Does the patient meet any 2 criteria? No. Patient's initial sepsis screen is negative. Does the patient have a suspected source of infection? No. Patient's initial sepsis screen is negative. Care prior to arrival: None. 19:00 Method Of Arrival: Ambulatory aj1 19:00 Acuity: VAISHNAVI 4 aj1 Triage Assessment: 19:02 General: Appears in no apparent distress. comfortable, Behavior is calm, cooperative, aj1 appropriate for age. Pain: Pain currently is 9 out of 10 on a pain scale. Neuro: Level of Consciousness is awake, alert, obeys commands. Cardiovascular: Patient's skin is warm and dry. Respiratory: Airway is patent Respiratory effort is even, unlabored, Respiratory pattern is regular, symmetrical. 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 - Social history:: Smoking status: Patient reports the use of cigarette tobacco products, smokes two packs cigarettes per day. - Ebola Screening: : Patient denies travel to an Ebola-affected area in the 21 days before illness onset. Screenin:45 Abuse screen: Denies threats or abuse. Denies injuries from another. 21:45 Tuberculosis screening: No symptoms or risk factors identified. 21:45 Nutritional screening: No deficits noted. 21:45 Fall Risk None identified. Assessment: 21:45 General: Appears in no apparent distress. Behavior is calm, cooperative, appropriate wh for age. Pain: Complains of pain in left knee Pain does not radiate. Pain currently is 7 out of 10 on a pain scale. Quality of pain is described as aching. Neuro: Level of Consciousness is awake, alert, obeys commands, Oriented to person, place, time, situation, Appropriate for age. Cardiovascular: Capillary refill < 3 seconds. Respiratory: Airway is patent Respiratory effort is even, unlabored, Respiratory pattern is regular, symmetrical. GI: Abdomen is flat, non-distended. : No signs and/or symptoms were reported regarding the genitourinary system. EENT: No signs and/or symptoms were reported regarding the EENT system. Derm: Skin is intact, is healthy with good turgor, Skin is pink, warm \\T\\ dry. normal. Musculoskeletal: Circulation, motion, and sensation intact. 23:05 Reassessment: Patient appears in no apparent distress at this time. No changes from previously documented assessment. Patient and/or family updated on plan of care and expected duration. Pain level reassessed. Patient is alert, oriented x 3, equal unlabored respirations, skin warm/dry/pink. 07/02 00:05 Reassessment: Patient appears in no apparent distress at this time. No changes from previously documented assessment. Patient and/or family updated on plan of care and expected duration. Pain level reassessed. Patient is alert, oriented x 3, equal unlabored respirations, skin warm/dry/pink. 01:37 Reassessment: Patient appears in no apparent distress at this time. No changes from previously documented assessment. Patient and/or family updated on plan of care and expected duration. Pain level reassessed. Patient is alert, oriented x 3, equal unlabored respirations, skin warm/dry/pink. Patient denies pain at this time. Patient states feeling better. Patient states symptoms have improved. Vital Signs: 07/01 19:02 BP 108 / 77; Pulse 93; Resp 20; Temp 98.1; Pulse Ox 98% on R/A; Weight 77.29 kg (R); aj1 Height 5 ft. 7 in. (170.18 cm) (R); Pain 9/10; 07/02 00:00 BP 110 / 79; Pulse 88; Resp 18; Pulse Ox 99% ; 07/01 19:02 Body Mass Index 26.69 (77.29 kg, 170.18 cm) [facility] ED Course: 07/01 18:11 Patient arrived in ED. 4 19:02 Triage completed. [facility] 19:02 Arm band placed on Patient placed in waiting room, Patient notified of wait time. [facility] 21:34 Sienna Le is Primary Nurse. 21:41 Richard Merritt PA is PHCP. [facility] 21:41 Jagdish Stubbs MD is Attending Physician. [facility] 21:45 Patient has correct armband on for positive identification. Bed in low position. Call light in reach. Side rails up X 1. Pulse ox on. NIBP on. 22:43 Chest Single View XRAY In Process Unspecified. EDMS 22:43 Knee Left 3 View XRAY In Process Unspecified. EDIA 07/02 01:38 No provider procedures requiring assistance completed. Patient did not have IV access during this emergency room visit. Administered Medications: 07/01 23:51 Drug: [place] 5 mg-325 mg 1 tabs Route: PO; 07/02 01:38 Follow up: Response: No adverse reaction; Pain is decreased; RASS: Alert and Calm (0) Outcome: 07/01 19:32 Eloped from waiting room, before seeing physician Time discovered patient gone: June at 19:33 Condition: stable 19:33 Patient left the ED. 07/02 00:54 Discharge ordered by . [facility] 01:39 Discharged to home ambulatory, with family. 01:39 Condition: stable 01:39 Discharge instructions given to patient, family, Instructed on discharge instructions, follow up and referral plans. no drinking with medication, no driving heavy equipment, medication usage, POC Demonstrated understanding of instructions, follow-up care, medications, POC Prescriptions given X 3. 01:39 Patient left the ED. Signatures: Dispatcher [employer] EDMS Delaney Howell RN RN aj Bruno Dockery RN RN Richard Merritt PA PA jmm Garcia, Rubi [facility] Sienna Le
[2019-07-01 20:10] VITALS: TEMP 98.1
[2019-07-01] MEDS ORDERED: HYDROCODONE/APAP 5/325 MG TAB ONE (23:52)
--- NOTE | 2019-07-02 00:55 | EDPHYS ---
Physician Documentation [facility] Name: Angie Kaur Age: 33 yrs Sex: Female : 1985 Arrival Date: 07/01/2019 Time: 18:11 Bed 20 Private MD: ED Physician Jagdish Stubbs HPI: 07/01 22:07 This 33 yrs old Female presents to ER via Ambulatory with complaints of jmm Cough, Knee Pain. 22:07 The patient or guardian reports cough. Onset: The symptoms/episode began/occurred jmm gradually, 3 week(s) ago. Modifying factors: The symptoms are alleviated by nothing, the symptoms are aggravated by nothing. This is a 33 year old female with no chronic medical conditions that presents to the ED with complaints of cough for 3 weeks with right sided sharp back pain on deep inspiration. Denies fever, denies vomiting. Patient also complains of left knee pain after twisting her knee 1 week ago. . 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 - Social history:: Smoking status: Patient reports the use of cigarette tobacco products, smokes two packs cigarettes per day. - Ebola Screening: : Patient denies travel to an Ebola-affected area in the 21 days before illness onset. ROS: 22:07 Constitutional: Negative for fever, chills, and weight loss, Cardiovascular: Negative jmm for chest pain, palpitations, and edema. 22:07 Respiratory: Positive for cough. 22:07 Back: Positive for pain with movement. 22:07 MS/extremity: Positive for injury or acute deformity, pain. 22:07 MS/extremity: Positive for 22:07 All other systems are negative. Exam: 22:07 Constitutional: This is a well developed, well nourished patient who is awake, alert, jmm and in no acute distress. Head/Face: atraumatic. Eyes: EOMI, no conjunctival erythema appreciated ENT: Moist Mucus Membranes Neck: Trachea midline, Supple Chest/axilla: Normal chest wall appearance and motion. Cardiovascular: Regular rate and rhythm. No edema appreciated Respiratory: Normal respirations, no respiratory distress appreciated 22:07 Abdomen/GI: Non distended, soft 22:07 Back: pain, that is mild, of the right subscapular area. 22:07 Musculoskeletal/extremity: left anterior knee TTP, FROM appreciated to the left knee, compartments are soft, full dorsalis pulse. 22:07 Skin: Appearance: Color: normal in color. 22:07 Neuro: Orientation: is normal, Mentation: is normal, Memory: is normal. 22:07 Psych: Behavior/mood is pleasant, cooperative. Vital Signs: 19:02 BP 108 / 77; Pulse 93; Resp 20; Temp 98.1; Pulse Ox 98% on R/A; Weight 77.29 kg (R); aj1 Height 5 ft. 7 in. (170.18 cm) (R); Pain 9/10; 07/02 00:00 BP 110 / 79; Pulse 88; Resp 18; Pulse Ox 99% ; wh 07/01 19:02 Body Mass Index 26.69 (77.29 kg, 170.18 cm) aj1 MDM: 07/01 21:58 Patient medically screened. [facility] 07/02 00:52 Data reviewed: vital signs, nurses notes. Counseling: I had a detailed discussion with [facility] the patient and/or guardian regarding: the historical points, exam findings, and any diagnostic results supporting the discharge/admit diagnosis, radiology results, the need for outpatient follow up, to return to the emergency department if symptoms worsen or persist or if there are any questions or concerns that arise at home. ED course: Patient is alert and non toxic in appearance in the ED. Patient advised to follow up with ortho for reevaluation of her knee. Patient was otherwise given strict return precautions. patient understood and agrees with the plan of care. . 07/01 22:07 Order name: Chest Single View XRAY [facility] 07/01 22:07 Order name: Knee Left 3 View XRAY [facility] 07/01 23:48 Order name: Knee Immobilizer; Complete Time: 23:52 [facility] Administered Medications: 07/01 23:51 Drug: [place] 5 mg-325 mg 1 tabs Route: PO; 07/02 01:38 Follow up: Response: No adverse reaction; Pain is decreased; RASS: Alert and Calm (0) Disposition: 07/02/19 00:54 Discharged to Home. Impression: Internal derangement of knee, Acute bronchitis. - Condition is Stable. - Discharge Instructions: Acute Bronchitis, Adult, Knee Pain. - Prescriptions for Prednisone 20 mg Oral Tablet - take 3 tablet by ORAL route once daily for 5 days; 15 tablet. Ultracet 37.5- 325 mg Oral Tablet - take 1 tablet by ORAL route every 6 hours - for up to 5 days; do not exceed 8 tablets per day.; 30 tablet. Albuterol Sulfate 90 mcg/actuation - inhale 1-2 puff by INHALATION route every 4-6 hours; 1 Inhaler. - Medication Reconciliation Form, Thank You Letter, Antibiotic Education, Prescription Opioid Use form. - Follow up: Private Physician; When: 2 - 3 days; Reason: Recheck today's complaints, Continuance of care, Re-evaluation by your physician. Addendum: 07/03/2019 10:02 Co-signature as Attending Physician, Jagdish Stubbs MD I agree with the assessment and c [facility]blood plan of care. Signatures: Dispatcher [employer] EDDelaney Zhu RN RN aj1 Bruno Dockery RN RN sg Anderson, Corey, MD MD cha Mickail, Joel, PA PA elian Sienna Le Corrections: (The following items were deleted from the chart) 07/01 21:32 19:33 07/01/2019 19:33 Patient left the facility before being seen by provider. Reason aj1 stated they are leaving due to unknown. 07/02 01:39 00:54 07/02/2019 00:54 Discharged to Home. Impression: Internal derangement of knee; wh Acute bronchitis. Condition is Stable. Forms are Medication Reconciliation Form, Thank You Letter, Antibiotic Education, Prescription Opioid Use. Follow up: Private Physician; When: 2 - 3 days; Reason: Recheck today's complaints, Continuance of care, Re-evaluation by your physician. ashley
[2019-07-02 02:15] VITALS: BP 110/79; O2SAT 99
--- NOTE | 2019-07-02 07:42 | RAD REPORT ---
EXAM DESCRIPTION: [place] Single View07/01/2019 10:42 pm CLINICAL HISTORY: cough COMPARISON: none FINDINGS: The lungs appear clear of acute infiltrate. The heart is normal size IMPRESSION: No acute abnormalities displayed
--- NOTE | 2019-07-02 07:43 | RAD REPORT ---
EXAM DESCRIPTION: RAD - Knee Left 3 View - 07/01/2019 10:43 pm CLINICAL HISTORY: Left knee pain FINDINGS: No fracture or dislocation is seen. No bone or joint abnormality seen
== END 2019-07-02 01:39 | disposition home or self-care (01) ==
LOC: ER 18:08
DX: J20.9 Acute bronchitis, unspecified (principal); M23.92 Unspecified internal derangement of left knee; F17.210 Nicotine dependence, cigarettes, uncomplicated; X50.1XXA Overexertion from prolonged static or awkward postures, initial encounter; Y93.9 Activity, unspecified; Y92.9 Unspecified place or not applicable
CPT/HCPCS: 71045; 99284

== ENCOUNTER 2019-07-05 18:24 | Emergency (ER) | payer OTHER ==
--- NOTE | 2019-07-05 19:36 | RAD REPORT ---
EXAM DESCRIPTION: RAD - Chest Pa And Lat (2 Views) - 07/05/2019 7:24 pm CLINICAL HISTORY: Congestion;Cough Chest pain. COMPARISON: Chest Single View dated 07/01/2019 FINDINGS: The lungs are clear. The heart is normal in size. No displaced fractures. IMPRESSION: No acute or concerning finding suspected.
--- NOTE | 2019-07-05 20:01 | EDPHYS ---
Physician Documentation [facility] Name: Angie Kaur Age: 33 yrs Sex: Female : 1985 Arrival Date: 07/05/2019 Time: 18:32 Bed 18 Private MD: ED Physician Madyson Rios HPI: 07/06 02:12 This 33 yrs old Female presents to ER via Ambulatory with complaints of Flu snw Symptoms. 02:12 Onset: The symptoms/episode began/occurred 2 week(s) ago, and became persistent. snw Associated signs and symptoms: Pertinent positives: congestion, cough, sore throat, wheezing. Modifying factors: The patient symptoms are alleviated by nothing, the patient symptoms are aggravated by movement. It is unknown whether or not the patient has had similar symptoms in the past. The patient has been recently seen by a physician: with similar presenting complaints, and apparently given a diagnosis of bronchitis, was given a prescription for antibiotics. Historical: - Allergies: 07/05 18:35 No Known Allergies; sv - PMHx: 18:35 None; sv - PSHx: 18:35 right arm; left leg; sv ROS: 07/06 02:11 Constitutional: Negative for fever, chills, and weight loss, Eyes: Negative for injury, snw pain, redness, and discharge, ENT: Negative for injury, pain, and discharge, Neck: Negative for injury, pain, and swelling, Cardiovascular: Negative for chest pain, palpitations, and edema. Abdomen/GI: Negative for abdominal pain, nausea, vomiting, diarrhea, and constipation, Back: Negative for injury and pain, : Negative for injury, bleeding, discharge, and swelling, MS/Extremity: Negative for injury and deformity, Skin: Negative for injury, rash, and discoloration, Neuro: Negative for headache, weakness, numbness, tingling, and seizure, Psych: Negative for depression, anxiety, suicide ideation, homicidal ideation, and hallucinations. Respiratory: Positive for cough, wheezing. Exam: 02:06 Constitutional: This is a well developed, well nourished patient who is awake, alert, snw and in no acute distress. Head/Face: Normocephalic, atraumatic. Eyes: Pupils equal round and reactive to light, extra-ocular motions intact. Lids and lashes normal. Conjunctiva and sclera are non-icteric and not injected. Cornea within normal limits. Periorbital areas with no swelling, redness, or edema. ENT: Nares patent. No nasal discharge, no septal abnormalities noted. Tympanic membranes are normal and external auditory canals are clear. Oropharynx with no redness, swelling, or masses, exudates, or evidence of obstruction, uvula midline. Mucous membranes moist. Neck: Trachea midline, no thyromegaly or masses palpated, and no cervical lymphadenopathy. Supple, full range of motion without nuchal rigidity, or vertebral point tenderness. No Meningismus. Chest/axilla: Normal chest wall appearance and motion. Nontender with no deformity. No lesions are appreciated. Cardiovascular: Regular rate and rhythm with a normal S1 and S2. No gallops, murmurs, or rubs. Normal PMI, no JVD. No pulse deficits. Abdomen/GI: Soft, non-tender, with normal bowel sounds. No distension or tympany. No guarding or rebound. No evidence of tenderness throughout. Back: No spinal tenderness. No costovertebral tenderness. Full range of motion. Skin: Warm, dry with normal turgor. Normal color with no rashes, no lesions, and no evidence of cellulitis. MS/ Extremity: Pulses equal, no cyanosis. Neurovascular intact. Full, normal range of motion. Neuro: Awake and alert, GCS 15, oriented to person, place, time, and situation. Cranial nerves II-XII grossly intact. Motor strength 5/5 in all extremities. Sensory grossly intact. Cerebellar exam normal. Normal gait. Psych: Awake, alert, with orientation to person, place and time. Behavior, mood, and affect are within normal limits. 02:06 Respiratory: the patient does not display signs of respiratory distress, Respirations: normal, Breath sounds: bronchial sounds, + upper airway congestion. bronchitic cough. Vital Signs: 07/05 18:35 BP 112 / 69; Pulse 106; Resp 20; Temp 98.3; Pulse Ox 98% ; Weight 77.11 kg; Height 5 sv ft. 7 in. (170.18 cm); 19:00 Temp 98.8(O); jb4 19:45 BP 108 / 79; Pulse 89; Resp 18; Pulse Ox 100% on R/A; jb4 18:35 Body Mass Index 26.63 (77.11 kg, 170.18 cm) sv MDM: 18:55 Patient medically screened. snw 07/06 02:07 Data reviewed: vital signs, nurses notes. Data interpreted: Pulse oximetry: on room air snw is 100 %. Interpretation: normal. Counseling: I had a detailed discussion with the patient and/or guardian regarding: the historical points, exam findings, and any diagnostic results supporting the discharge/admit diagnosis, lab results, the need for outpatient follow up, for definitive care, to return to the emergency department if symptoms worsen or persist or if there are any questions or concerns that arise at home, smoking cessation. Special discussion: Based on the history and exam findings, there is no indication for further emergent testing or inpatient evaluation. I discussed with the patient/guardian the need to see the primary care provider for further evaluation of the symptoms. ED course: Continue current medications. 07/05 18:50 Order name: Flu; Complete Time: 19:41 snw 07/05 18:50 Order name: Strep snw 07/05 18:50 Order name: Chest Pa And Lat (2 Views) XRAY; Complete Time: 19:41 sv Administered Medications: No medications were administered Disposition: 07/05/19 20:01 Discharged to Home. Impression: Acute bronchitis. - Condition is Stable. - Discharge Instructions: Acute Bronchitis, Adult, Fever, Adult, Steps to Quit Smoking, Smoking Hazards, Cough, Adult, Rehydration, Adult. - Prescriptions for Tessalon Perles 100 mg Oral Capsule - take 1 capsule by ORAL route every 8 hours As needed; 15 capsule. Zithromax 500 mg Oral Tablet - take 1 tablet by ORAL route once daily for 5 days; 5 tablet. - Work release form, Medication Reconciliation Form, Thank You Letter, Antibiotic Education, Prescription Opioid Use form. - Follow up: Emergency Department; When: As needed; Reason: Worsening of condition. Follow up: Private Physician; When: 2 - 3 days; Reason: Recheck today's complaints, Continuance of care, Re-evaluation by your physician. Signatures: Dispatcher [employer] Rachael Nguyen RN RN sv Donna Lancaster, QM NURSE-C QM NURSE-Csnw Yelena Barton RN RN tl1 Corrections: (The following items were deleted from the chart) 07/05 20:14 20:01 07/05/2019 20:01 Discharged to Home. Impression: Acute bronchitis. Condition is tl1 Stable. Forms are Medication Reconciliation Form, Thank You Letter, Antibiotic Education, Prescription Opioid Use. Follow up: Emergency Department; When: As needed; Reason: Worsening of condition. Follow up: Private Physician; When: 2 - 3 days; Reason: Recheck today's complaints, Continuance of care, Re-evaluation by your physician. snw
--- NOTE | 2019-07-05 20:01 | ER ---
Nurse's Notes [facility] Name: Angie Kaur Age: 33 yrs Sex: Female : 1985 Arrival Date: 07/05/2019 Time: 18:32 Bed 18 Private MD: Diagnosis: Acute bronchitis Presentation: 07/05 18:32 Presenting complaint: Patient states: productive cough, chills, body aches started sv today. Transition of care: patient was not received from another setting of care. Onset of symptoms was July 05, 2019. Care prior to arrival: None. 18:32 Method Of Arrival: Ambulatory sv 18:32 Acuity: VAISHNAVI 3 sv Triage Assessment: 18:32 General: Appears in no apparent distress. uncomfortable, Behavior is calm, cooperative, sv appropriate for age. General: Reports fever for 0-12 hours. Neuro: Level of Consciousness is awake, alert, obeys commands, Gait is steady. Respiratory: Reports cough that is productive, Respiratory effort is even, unlabored. Historical: - Allergies: 18:35 No Known Allergies; sv - PMHx: 18:35 None; sv - PSHx: 18:35 right arm; left leg; sv Screenin:00 Abuse screen: Denies threats or abuse. Nutritional screening: No deficits noted. jb4 Tuberculosis screening: No symptoms or risk factors identified. Fall Risk None identified. Assessment: 19:00 General: Appears in no apparent distress. uncomfortable, Behavior is calm, cooperative, jb4 appropriate for age. Pain: Complains of pain in Body aches Pain does not radiate. Pain currently is 8 out of 10 on a pain scale. Neuro: Level of Consciousness is awake, alert, obeys commands, Oriented to person, place, time, situation. Cardiovascular: Patient's skin is warm and dry. Respiratory: Airway is patent Respiratory effort is even, unlabored, Respiratory pattern is regular, symmetrical. GI: No signs and/or symptoms were reported involving the gastrointestinal system. : No signs and/or symptoms were reported regarding the genitourinary system. EENT: No signs and/or symptoms were reported regarding the EENT system. Derm: Skin is intact, Skin is pink, warm \T\ dry. Musculoskeletal: Circulation, motion, and sensation intact. Range of motion: intact in all extremities. 19:45 Reassessment: Patient appears in no apparent distress at this time. Patient and/or jb4 family updated on plan of care and expected duration. Pain level reassessed. Patient is alert, oriented x 3, equal unlabored respirations, skin warm/dry/pink. Vital Signs: 18:35 BP 112 / 69; Pulse 106; Resp 20; Temp 98.3; Pulse Ox 98% ; Weight 77.11 kg; Height 5 sv ft. 7 in. (170.18 cm); 19:00 Temp 98.8(O); jb4 19:45 BP 108 / 79; Pulse 89; Resp 18; Pulse Ox 100% on R/A; jb4 18:35 Body Mass Index 26.63 (77.11 kg, 170.18 cm) sv ED Course: 18:32 Patient arrived in ED. sv 18:34 Triage completed. sv 18:35 Arm band placed on. sv 18:50 Donna Lancaster, CHRISTINE-C [facility]. snw 18:50 Madyson Rios MD is Attending Physician. snw 19:00 Patient has correct armband on for positive identification. Bed in low position. Call jb4 light in reach. Side rails up X 1. Pulse ox on. NIBP on. 19:00 Flu and/or RSV swab sent to lab. Strep swab sent to lab. jb4 19:16 Chapin Arredondo, RN is Primary Nurse. jb4 19:25 Chest Pa And Lat (2 Views) XRAY In Process Unspecified. EDMS 20:10 No provider procedures requiring assistance completed. Patient did not have IV access jb4 during this emergency room visit. Administered Medications: No medications were administered Outcome: 20:01 Discharge ordered by . snw 20:10 Discharged to home ambulatory, with family. jb4 20:10 Condition: stable 20:10 Discharge instructions given to patient, family, Instructed on discharge instructions, follow up and referral plans. medication usage, Demonstrated understanding of instructions, follow-up care, medications, Prescriptions given X 2. 20:14 Patient left the ED. tl1 Signatures: Dispatcher [employer] EDMS Rachael Castrejon RN RN Donna Lancaster, HEATER WORKER-C HEATER WORKER-Csnw Yelena Barton RN RN tl1 Chpain Arredondo RN RN jb4
[2019-07-06 09:53] VITALS: TEMP 98.8
[2019-07-06 09:55] VITALS: BP 108/79; O2SAT 100
== END 2019-07-05 20:14 | disposition home or self-care (01) ==
LOC: ER 18:24
DX: J20.9 Acute bronchitis, unspecified (principal)
CPT/HCPCS: 71046; 87070; 87081; 87804; 99284

== ENCOUNTER 2019-08-02 12:21 | Emergency (ER) | payer OTHER ==
--- NOTE | 2019-08-02 13:58 | EDPHYS ---
Physician Documentation [facility] Name: Angie Kaur Age: 33 yrs Sex: Female : 1985 Arrival Date: 08/02/2019 Time: 12:22 Bed 23 Private MD: ED Physician Mart Moran HPI: 08/02 14:00 This 33 yrs old Female presents to ER via Ambulatory with complaints of kb Laceration To Hand. 14:00 The patient has a laceration related to: reached into sink and cut hand on broken glass kb occurred at home, and there are no complicating factors. The injury was accidental. The laceration(s) is(are) located on the inner aspect of left palm. Onset: The symptoms/episode began/occurred this morning, at 05:00. Associated signs and symptoms: The patient has no apparent associated signs or symptoms. The patient has not experienced similar symptoms in the past. The patient has not recently seen a physician. 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 - Coronavirus screen:: The patient has NOT traveled to [place] in the past 14 days. Proceed with normal triage process as indicated. - Social history:: Smoking status: Patient reports the use of cigarette tobacco products, smokes one pack cigarettes per day. - Ebola Screening: : Patient negative for fever greater than or equal to 101.5 degrees Fahrenheit, and additional compatible Ebola Virus Disease symptoms Patient denies exposure to infectious person Patient denies travel to an Ebola-affected area in the 21 days before illness onset No symptoms or risks identified at this time. ROS: 13:59 Constitutional: Negative for fever, chills, and weight loss, Cardiovascular: Negative kb for chest pain, palpitations, and edema, Respiratory: Negative for shortness of breath, cough, wheezing, and pleuritic chest pain, Abdomen/GI: Negative for abdominal pain, nausea, vomiting, diarrhea, and constipation, Back: Negative for injury and pain, MS/Extremity: Negative for injury and deformity, Neuro: Negative for headache, weakness, numbness, tingling, and seizure. 13:59 Skin: Positive for laceration(s), of the inner aspect of left palm. Exam: 13:59 Constitutional: This is a well developed, well nourished patient who is awake, alert, kb and in no acute distress. Head/Face: Normocephalic, atraumatic. Chest/axilla: Normal chest wall appearance and motion. Nontender with no deformity. No lesions are appreciated. Cardiovascular: Regular rate and rhythm with a normal S1 and S2. No gallops, murmurs, or rubs. Normal PMI, no JVD. No pulse deficits. Respiratory: Lungs have equal breath sounds bilaterally, clear to auscultation and percussion. No rales, rhonchi or wheezes noted. No increased work of breathing, no retractions or nasal flaring. Abdomen/GI: Soft, non-tender, with normal bowel sounds. No distension or tympany. No guarding or rebound. No evidence of tenderness throughout. MS/ Extremity: Pulses equal, no cyanosis. Neurovascular intact. Full, normal range of motion. Neuro: Awake and alert, GCS 15, oriented to person, place, time, and situation. Cranial nerves II-XII grossly intact. Motor strength 5/5 in all extremities. Sensory grossly intact. Cerebellar exam normal. Normal gait. 13:59 Skin: injury, laceration(s), the wound is approximately 4 cm(s), of the inner aspect of left palm, that can be described as clean, no foreign body, linear, without bleeding. Vital Signs: 13:02 Weight 74.84 kg; Height 5 ft. 7 in. (170.18 cm); iw 13:05 BP 131 / 93; Pulse 97; Resp 18; Temp 98.5; Pulse Ox 97% on R/A; tm3 13:02 Body Mass Index 25.84 (74.84 kg, 170.18 cm) iw Laceration: 13:57 Wound Repair of 4cm ( 1.6in ) subcutaneous laceration to inner aspect of left palm. kb Linear shaped.. Distal neuro/vascular/tendon intact. Anesthesia: Wound infiltrated with 5 mls of 1% lidocaine. Wound prep: Extensive cleansing with hibiclenz by me, Wound irrigation with saline by me. Skin closed with 6 4-0 Prolene using simple sutures and sterile technique. Patient tolerated well. MDM: 12:57 Patient medically screened. kb 13:57 Differential diagnosis: superficial laceration. Data reviewed: vital signs, nurses kb notes. Data interpreted: Pulse oximetry: on room air is 97 %. Interpretation: normal. Counseling: I had a detailed discussion with the patient and/or guardian regarding: the historical points, exam findings, and any diagnostic results supporting the discharge/admit diagnosis, the need for outpatient follow up, a family practitioner, to return to the emergency department if symptoms worsen or persist or if there are any questions or concerns that arise at home. 08/02 13:04 Order name: Prolene, Sutures; Complete Time: 14:01 kb 08/02 13:04 Order name: Dressing - Wound; Complete Time: 14:01 kb 08/02 13:04 Order name: Gloves, Sterile; Complete Time: 14:01 kb 08/02 13:04 Order name: Setup Suture Tray; Complete Time: 14:01 kb 08/02 13:04 Order name: Misc. Order: soak hand in 50/50 mixture of betadine and ns for 15 minutes; kb Complete Time: 14:01 Administered Medications: 13:40 Drug: Lidocaine (1 %) 1 vials Volume: 5 ml; Route: Infiltration; vc 14:11 Drug: KeFLEX 500 mg Route: PO; vc 14:11 Follow up: Response: Medication administered at discharge. vc Disposition: 14:49 Co-signature as Attending Physician, Mart Moran MD. rn Disposition: 08/02/19 13:58 Discharged to Home. Impression: Laceration without foreign body of left hand. - Condition is Stable. - Discharge Instructions: Laceration Care, Adult, [id number]. - Prescriptions for Keflex 500 mg Oral Capsule - take 1 capsule by ORAL route every 8 hours for 5 days; 15 capsule. - Medication Reconciliation Form, Thank You Letter, Antibiotic Education, Prescription Opioid Use form. - Follow up: Emergency Department; When: As needed; Reason: Worsening of condition. Follow up: Private Physician; When: 2 - 3 days; Reason: Recheck today's complaints, Continuance of care, Re-evaluation by your physician. Signatures: Bethany Souza, FIELD TRAINING MANAGER-C FIELD TRAINING MANAGER-Yolie White RN RN iw Nieto, Roman, MD MD rn Calcote, Vanessa, RN RN vc Corrections: (The following items were deleted from the chart) 13:05 13:02 PSHx: right eye; iw iw 14:15 13:58 08/02/2019 13:58 Discharged to Home. Impression: Laceration without foreign body vc of left hand. Condition is Stable. Forms are Medication Reconciliation Form, Thank You Letter, Antibiotic Education, Prescription Opioid Use. Follow up: Emergency Department; When: As needed; Reason: Worsening of condition. Follow up: Private Physician; When: 2 - 3 days; Reason: Recheck today's complaints, Continuance of care, Re-evaluation by your physician. kb
--- NOTE | 2019-08-02 13:58 | ER ---
Nurse's Notes [facility] Name: Angie Kaur Age: 33 yrs Sex: Female : 1985 Arrival Date: 08/02/2019 Time: 12:22 Bed 23 Private MD: Diagnosis: Laceration without foreign body of left hand Presentation: 08/02 13:01 Presenting complaint: Patient states: cut left hand on some broken glass in sink, iw occurred at 0500 today. Transition of care: patient was not received from another setting of care. Complicating Factors: There are no complicating factors for this patient. Onset of symptoms was August 02, 2019. Risk Assessment: Do you want to hurt yourself or someone else? Patient reports no desire to harm self or others. Initial Sepsis Screen: Does the patient meet any 2 criteria? No. Patient's initial sepsis screen is negative. Does the patient have a suspected source of infection? No. Patient's initial sepsis screen is negative. Care prior to arrival: None. 13:01 Method Of Arrival: Ambulatory iw 13:01 Acuity: VAISHNAVI 4 iw Triage Assessment: 14:15 General: Appears in no apparent distress. uncomfortable, Behavior is cooperative, vc crying. Pain: Complains of pain in left hand and inner aspect of left palm. 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 - Coronavirus screen:: The patient has NOT traveled to [place] in the past 14 days. Proceed with normal triage process as indicated. - Social history:: Smoking status: Patient reports the use of cigarette tobacco products, smokes one pack cigarettes per day. - Ebola Screening: : Patient negative for fever greater than or equal to 101.5 degrees Fahrenheit, and additional compatible Ebola Virus Disease symptoms Patient denies exposure to infectious person Patient denies travel to an Ebola-affected area in the 21 days before illness onset No symptoms or risks identified at this time. Screenin:02 Abuse screen: Denies threats or abuse. Nutritional screening: No deficits noted. vc Tuberculosis screening: No symptoms or risk factors identified. Fall Risk None identified. Assessment: 13:30 Musculoskeletal: Range of motion: intact in all extremities. Injury Description: vc Laceration is contaminated. 13:30 General: Appears in no apparent distress. comfortable, Behavior is calm, cooperative, vc appropriate for age. Pain: Complains of pain in inner aspect of left palm. Neuro: Level of Consciousness is awake, alert, obeys commands, Oriented to person, place, time, situation. Cardiovascular: Patient's skin is warm and dry. Respiratory: Respiratory effort is even, unlabored, Respiratory pattern is regular, symmetrical. GI: No signs and/or symptoms were reported involving the gastrointestinal system. :. EENT: No signs and/or symptoms were reported regarding the EENT system. Derm: Wound noted inner aspect of left palm. 14:00 Reassessment: Patient and/or family updated on plan of care and expected duration. Pain vc level reassessed. Patient is alert, oriented x 3, equal unlabored respirations, skin warm/dry/pink. Vital Signs: 13:02 Weight 74.84 kg; Height 5 ft. 7 in. (170.18 cm); iw 13:05 BP 131 / 93; Pulse 97; Resp 18; Temp 98.5; Pulse Ox 97% on R/A; tm3 13:02 Body Mass Index 25.84 (74.84 kg, 170.18 cm) iw ED Course: 12:22 Patient arrived in ED. ag5 12:34 Bethany Souza FNP-C [facility]. kb 12:34 Mart Moran MD is Attending Physician. kb 13:02 Triage completed. iw 13:02 Arm band placed on. iw 13:08 Yolie Cobos, RN is Primary Nurse. iw 13:30 Patient has correct armband on for positive identification. vc 13:31 Primary Nurse role handed off by Yolie Cobos, CHARLIE vc 13:31 Siomara Galarza, CHARLIE is Primary Nurse. vc 14:13 No provider procedures requiring assistance completed. Patient did not have IV access vc during this emergency room visit. Administered Medications: 13:40 Drug: Lidocaine (1 %) 1 vials Volume: 5 ml; Route: Infiltration; vc 14:11 Drug: KeFLEX 500 mg Route: PO; vc 14:11 Follow up: Response: Medication administered at discharge. vc Outcome: 13:58 Discharge ordered by . kb 14:14 Discharged to home ambulatory, with significant other. vc 14:14 Condition: good 14:14 Discharge instructions given to patient, significant other, Instructed on discharge instructions, follow up and referral plans. medication usage, wound care, Demonstrated understanding of instructions, follow-up care, medications, wound care, Prescriptions given X 1. 14:15 Patient left the ED. vc Signatures: Bethany Souza, INTERNAL MEDICINE NURSE-C INTERNAL MEDICINE NURSE-Ckb Renny Michael tm3 Yolie Cobos RN RN Telma Nunez ag5 Siomara Galarza RN RN vc Corrections: (The following items were deleted from the chart) 13:05 13:02 PSHx: right eye; iw sherly
[2019-08-02] MEDS ORDERED: CEPHALEXIN 250 MG CAP ONE (14:09)
[2019-08-02 14:26] VITALS: BP 131/93; TEMP 98.5; O2SAT 97
== END 2019-08-02 14:15 | disposition home or self-care (01) ==
LOC: ER 12:21
PROC: 0JQK0ZZ Repair Left Hand Subcutaneous Tissue and Fascia, Open Approach (ICD-10-PCS; principal; 2019-08-02)
DX: S61.412A Laceration without foreign body of left hand, initial encounter (principal); W25.XXXA Contact with sharp glass, initial encounter; Y93.89 Activity, other specified; Y92.000 Kitchen of unspecified non-institutional (private) residence as the place of occurrence of the external cause; F17.210 Nicotine dependence, cigarettes, uncomplicated
CPT/HCPCS: 99283

== ENCOUNTER 2019-08-29 23:15 | Emergency (ER) | payer OTHER ==
[2019-08-29] MEDS ORDERED: WATER FOR INJ,STERILE 10 ML ONE (23:55)
[2019-08-29] MEDS ORDERED: ZIPRASIDONE MESYLA 20 MG/VIAL IM ONE (23:55)
[2019-08-29 23:59] LABS: Absolute Lymphocytes (CBC) 3.6 K/uL (0.7-4.9); Basophils % 2.1 % (0-1.3); Hematocrit 39.2 % (36.0-45.0); Lymphocytes % 47.9 % (15.3-44.8); MPV 8.7 fL (7.6-11.3); RBC Red Blood Cell Count 4.04 M/uL (3.86-4.86)
[2019-08-30 00:02] LABS: Protime INR 0.84
[2019-08-30 00:10] LABS: Barbiturates NEGATIVE (NEGATIVE); Benzodiazepines NEGATIVE (NEGATIVE); Cocaine NEGATIVE (NEGATIVE); METHAMPHETAM NEGATIVE (NEGATIVE); Methadone NEGATIVE (NEGATIVE); Opiates NEGATIVE (NEGATIVE); Phencyclidine NEGATIVE (NEGATIVE); THC Cannibis NEGATIVE (NEGATIVE)
[2019-08-30 00:16] LABS: ALT/SGPT 32 U/L (12-78); AST/SGOT 22 U/L (15-37); Albumin 3.5 g/dL (3.4-5.0); Alkaline Phosphatase 69 U/L (45-117); BUN Blood Urea Nitrogen 8 mg/dL (7-18); Bicarbonate 24 mmol/L (21-32); Bilirubin Direct < 0.1 mg/dL (0-0.2); Bilirubin Total 0.2 mg/dL (0.2-1.0); Glucose Level 98 mg/dL (74-106); Potassium 4.2 mmol/L (3.5-5.1); Protein, Total 7.8 g/dL (6.4-8.2); Sodium Level 146 mmol/L (136-145)
[2019-08-30] MEDS ORDERED: NA CHLORIDE 0.9% 1,000 ML ONE (01:16)
[2019-08-30 01:39] LABS: Urine Blood NEGATIVE (NEG); Urine Glucose NEGATIVE (NEG); Urine Protein NEGATIVE (NEG); Urine Specific Gravity 1.015 (1.005-1.030)
--- NOTE | 2019-08-30 06:55 | EKG ---
Test Date: 2019-08-29 Test Time: 23:20:30 Tc Operator: MEASUREMENT RESULTS: Intervals: Rate: 94 UT: 148 QRSD: 76 QT: 362 QTc: 452 [place]: P: 59 UT: 148 QRS: 70 T: 54 INTERPRETIVE STATEMENTS: Normal sinus rhythm Normal ECG No previous ECG available for comparison Electronically Signed On 08-30-19 06:54:33 CDT by Héctor Kauffman
--- NOTE | 2019-08-30 10:21 | ER ---
Nurse's Notes [facility] Name: Angie Kaur Age: 33 yrs Sex: Female : 1985 Arrival Date: 08/29/2019 Time: 23:17 Bed 16 Private MD: Diagnosis: Suicidal ideations;Alcohol abuse with intoxication Presentation: 08/28 23:22 Chief complaint: EMS states: Called for patient who cut herself with knife in front of lp1 family, + ETOH; States today is the day her brother ; Family stressors involved today; Patient loudly talking on arrival to ED, denies wanting to harm self or others, states "This is just because I've been drinking, I don't want to kill myself". Coronavirus screen: The patient has NOT traveled to a country currently being monitored by the [facility] within the last 14 days. The patient has NOT had contact with any known and/or suspected case of coronavirus. Ebola Screen: No symptoms or risks identified at this time. Risk Assessment: Do you want to hurt yourself or someone else? Other: Patient denies. 23:22 Method Of Arrival: EMS: [facility] 1 23:22 Acuity: VAISHNAVI 2 lp1 23:30 Initial Sepsis Screen: Does the patient meet any 2 criteria? No. Patient's initial sepsis screen is negative. Does the patient have a suspected source of infection? No. Patient's initial sepsis screen is negative. 23:30 Onset of symptoms was August 30, 2019. 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 - Social history:: Smoking status: Patient reports the use of cigarette tobacco products, smokes one pack cigarettes per day. Patient uses alcohol, Patient/guardian denies using street drugs. Screenin/16 23:30 Abuse screen: Denies threats or abuse. Denies injuries from another. Nutritional screening: No deficits noted. Tuberculosis screening: No symptoms or risk factors identified. Fall Risk None identified. Assessment: 23:30 General: Appears in no apparent distress. Behavior is cooperative, listless. Pain: wh Denies pain. Neuro: Level of Consciousness is awake, alert, obeys commands, Oriented to person, place, time, situation, Appropriate for age. Cardiovascular: Capillary refill < 3 seconds. Respiratory: Airway is patent Respiratory effort is even, unlabored, Respiratory pattern is regular, symmetrical. GI: Abdomen is flat, non-distended. : No signs and/or symptoms were reported regarding the genitourinary system. EENT: No signs and/or symptoms were reported regarding the EENT system. Derm: Skin is intact, is healthy with good turgor, Skin is pink, warm \\T\\ dry. normal. Musculoskeletal: Circulation, motion, and sensation intact. Injury Description: Laceration sustained to left forearm is clean, 2.6 to 7.5 cm long, no active bleeding noted at this time. 08/29 03:30 Reassessment: Pt sleeping well no signs of distress noted, sitter at bedside. 06:30 Reassessment: Patient appears in no apparent distress at this time. No changes from previously documented assessment. Pt sleeping well no signs of distress noted. 07:00 General: Appears in no apparent distress. Pt. is resting with eyes closed, respirations rb1 even, unlabored. Sitter at the bedside.. 08:00 Reassessment: Patient appears in no apparent distress at this time. Patient and/or rb1 family updated on plan of care and expected duration. Pain level reassessed. Patient is alert, oriented x 3, equal unlabored respirations, skin warm/dry/pink. Pt. denies wanting to hurt herself or anyone else. Denies having a plan. Reports that she made the comment when she was drunk and sad over her brother dieing. Patient denies pain at this time. 09:00 Reassessment: Patient appears in no apparent distress at this time. No changes from [facility] previously documented assessment. 09:20 Reassessment: [facility] is at the bedside. [facility] 10:00 Reassessment: Patient appears in no apparent distress at this time. Patient and/or rb1 family updated on plan of care and expected duration. Pain level reassessed. Patient is alert, oriented x 3, equal unlabored respirations, skin warm/dry/pink. Patient denies pain at this time. 10:30 Reassessment: Called [facility] to bring the pt. belongings. rb1 10:44 Reassessment: Belongings given back to patient by security. Psych: 08/28 23:30 Subjective: Patient's mood is sad, euphoric, Having thoughts of suicide. Denies suicidal plan. Objective: Patient is cooperative, Speech is normal, Patient has mutilated themselves by superficial laceration on left forearm. Interventions: Removed personal items and placed in bag. Patient placed in hospital gown. Searched person for dangerous items. Urine collected and sent for urine drug test. Belonging list filled out. Suicide Risk Assessment: Sad Person Scale: Sex of patient: Female: Score 0 points. Age of patient: Score 1 point if patient 15-34. Depression: Score 1 point if signs of depression are present. Previous Attempt: Score 1 point if patient has previously attempted suicide. Substance Abuse: Score 1 point if patient abuses alcohol or drugs. Rational Thinking: Score 0 point if patient has rational thinking. Organized Plan: Score 0 if patient did not have an organized plan in place. Safety Checks: Personal items have been removed. Door is open. No visitors are present at this time. Patient uses Patient uses tobacco. Commitment: Patient will be a voluntary commitment. Vital Signs: 08/29 00:05 BP 119 / 81; Pulse 94; Resp 16; Temp 97.8(O); Pulse Ox 99% on R/A; Weight 77.11 kg; Height 5 ft. 7 in. (170.18 cm); 09:00 BP 120 / 82; Pulse 94; Resp 16; Temp 97.2(O); Pulse Ox 98% on R/A; rb1 00:05 Body Mass Index 26.63 (77.11 kg, 170.18 cm) ED Course: 08/28 23:17 Patient arrived in ED. 23:26 Triage completed. lp1 23:30 Sienna Le is Primary Nurse. wh 23:30 Tahir Stephenson MD is Attending Physician. tw4 23:30 Arm band placed on left wrist. wh 23:30 Patient has correct armband on for positive identification. Placed in gown. Bed in low wh position. Sitter at bedside. 08/29 06:18 called [facility] ebony with Luis Eduardo to have screener evaluate pt. mw2 07:28 Attending Physician role handed off by Tahir Stephenson MD rn 07:28 Mart Moran MD is Attending Physician. rn 08:35 [facility] called to inform they will arrive to speak with the Pt in 45min to a Hour. ms 10:42 No provider procedures requiring assistance completed. IV discontinued, intact, ss bleeding controlled, No redness/swelling at site. Pressure dressing applied. Administered Medications: 08/28 23:58 Drug: Geodon 20 mg Route: IM; Site: left gluteus; 08/29 01:18 Drug: NS 0.9% 1000 ml Route: IV; Rate: 1 bolus; Site: right antecubital; Outcome: 10:20 Discharge ordered by MD. rn 10:42 Discharged to home ambulatory. ss 10:42 Condition: good 10:42 Discharge instructions given to patient, family, Instructed on discharge instructions, follow up and referral plans. Demonstrated understanding of instructions, follow-up care. 10:53 Patient left the ED. Signatures: Helen Mathews ms Mart Moran MD MD rn Smirch, Shelby, RN RN Lori Young RN RN lp1 Macey Ortega, RN RN [facility] Tahir Stephenson MD MD tw4 Rick Khalil mw2 Corrections: (The following items were deleted from the chart) 01:17 00:05 BP 119 / 81; Pulse 94bpm; Resp 16bpm; Pulse Ox 99% RA; Temp 97.8F Oral; [facility]
--- NOTE | 2019-08-30 10:21 | EDPHYS ---
Physician Documentation [facility] Name: Angie Kaur Age: 33 yrs Sex: Female : 1985 Arrival Date: 08/29/2019 Time: 23:17 Bed 16 Private MD: ED Physician Mart Moran HPI: 08/29 07:09 This 33 yrs old Female presents to ER via EMS with complaints of Suicidal tw4 Ideation. 07:09 The patient presents to the emergency department with anxiety, depression, over a tw4 , a relative of the patient, suicide ideation, and the patient has a plan, to overdose with medications. Onset: The symptoms/episode began/occurred just prior to arrival, today. Past psychiatric history: Prior diagnosis: addiction history, alcohol. Associated signs and symptoms: The patient has no apparent associated signs or symptoms. The patient has not experienced similar symptoms in the past. 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 - Social history:: Smoking status: Patient reports the use of cigarette tobacco products, smokes one pack cigarettes per day. Patient uses alcohol, Patient/guardian denies using street drugs. ROS: 07:09 Constitutional: Negative for fever, chills, and weight loss, Eyes: Negative for injury, tw4 pain, redness, and discharge, Cardiovascular: Negative for chest pain, palpitations, and edema, Respiratory: Negative for shortness of breath, cough, wheezing, and pleuritic chest pain, Abdomen/GI: Negative for abdominal pain, nausea, vomiting, diarrhea, and constipation, Back: Negative for injury and pain, MS/Extremity: Negative for injury and deformity. 07:09 Psych: Positive for depression, drug dependence, suicidal ideation. Exam: 07:09 Constitutional: This is a well developed, well nourished patient who is awake, alert, tw4 and in no acute distress. Head/Face: Normocephalic, atraumatic. Chest/axilla: Normal chest wall appearance and motion. Nontender with no deformity. No lesions are appreciated. Cardiovascular: Regular rate and rhythm with a normal S1 and S2. No gallops, murmurs, or rubs. Normal PMI, no JVD. No pulse deficits. Respiratory: Lungs have equal breath sounds bilaterally, clear to auscultation and percussion. No rales, rhonchi or wheezes noted. No increased work of breathing, no retractions or nasal flaring. Abdomen/GI: Soft, non-tender, with normal bowel sounds. No distension or tympany. No guarding or rebound. No evidence of tenderness throughout. Back: No spinal tenderness. No costovertebral tenderness. Full range of motion. MS/ Extremity: Pulses equal, no cyanosis. Neurovascular intact. Full, normal range of motion. Neuro: Awake and alert, GCS 15, oriented to person, place, time, and situation. Cranial nerves II-XII grossly intact. Motor strength 5/5 in all extremities. Sensory grossly intact. Cerebellar exam normal. Normal gait. 07:09 Psych: Behavior/mood is cooperative, anxious, suicidal, Affect is animated, Oriented to person, place, time, Patient having thoughts of suicide. Vital Signs: 00:05 BP 119 / 81; Pulse 94; Resp 16; Temp 97.8(O); Pulse Ox 99% on R/A; Weight 77.11 kg; wh Height 5 ft. 7 in. (170.18 cm); 09:00 BP 120 / 82; Pulse 94; Resp 16; Temp 97.2(O); Pulse Ox 98% on R/A; rb1 00:05 Body Mass Index 26.63 (77.11 kg, 170.18 cm) wh MDM: 08/28 23:30 Patient medically screened. tw4 08/29 07:09 Differential diagnosis: drug withdrawal. acute psychotic break. Data reviewed: vital tw4 signs, nurses notes. Data interpreted: Pulse oximetry: Interpretation: normal. Test interpretation: by ED physician or midlevel provider: ECG. Counseling: I had a detailed discussion with the patient and/or guardian regarding: the historical points, exam findings, and any diagnostic results supporting the discharge/admit diagnosis, lab results. 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 08:19 ED course: Pt now sober, reports drinking heavily last night and "talking shit", denies rn suicidal ideation now sober, has never harmed herself or attempted suicide. Reports yesterday was anniversary of brother's so went out drinking. . 08:20 ED course: [facility] coming out, anticipate dc home given she denies rn suicidal ideation now. . 10:17 ED course: Evaluated by Mental health, deemed ok to discharge home, has safety plan, rn denies suicidal ideation. 08/28 23:30 Order name: Acetaminophen 08/28 23:30 Order name: Basic Metabolic Panel 08/28 23:30 Order name: CBC with Diff; Complete Time: 08:19 08/28 23:30 Order name: ETOH Level; Complete Time: 08:19 08/28 23:30 Order name: Hepatic Function; Complete Time: 08:19 08/28 23:30 Order name: PT-INR; Complete Time: 08:19 08/28 23:30 Order name: Ptt, Activated; Complete Time: 08:19 08/28 23:30 Order name: Salicylate; Complete Time: 08:19 08/28 23:30 Order name: Urine Drug Screen; Complete Time: 08:19 08/28 23:31 Order name: Acetaminophen Level; Complete Time: 08:19 EDNE 08/28 23:31 Order name: Basic Metabolic Panel; Complete Time: 08:19 EDNE 08/28 23:53 Order name: Urine Dipstick--Ancillary (enter results); Complete Time: 08:19 [facility] 08/28 23:53 Order name: Urine --Ancillary (enter results); Complete Time: 08:19 [facility] 08/29 04:00 Order name: ETOH Level; Complete Time: 08:19 lp1 08/28 23:30 Order name: EKG; Complete Time: 23:32 08/28 23:30 Order name: EKG - Nurse/Tech; Complete Time: 23:43 08/28 23:30 Order name: IV Saline Lock; Complete Time: 23:43 08/28 23:30 Order name: Labs collected and sent; Complete Time: 23:43 08/28 23:30 Order name: Urine Dipstick-Ancillary (obtain specimen); Complete Time: 23:43 08/29 06:03 Order name: ETOH Level; Complete Time: 08:19 [facility] 08/29 07:53 Order name: Diet Finger Food; Complete Time: 07:54 rb1 EC:11 Rate is 94 beats/min. Rhythm is regular. QRS [place] is Normal. [place] interval is normal. QRS tw4 interval is normal. QT interval is normal. No Q waves. T waves are Normal. No ST changes noted. Clinical impression: Normal ECG. Interpreted by me. Reviewed by me. Administered Medications: 08/28 23:58 Drug: Geodon 20 mg Route: IM; Site: left gluteus; 08/29 01:18 Drug: NS 0.9% 1000 ml Route: IV; Rate: 1 bolus; Site: right antecubital; Disposition: 08/30/19 10:20 Discharged to Home. Impression: Suicidal ideations, Alcohol abuse with intoxication. - Condition is Stable. - Discharge Instructions: Alcohol Intoxication. - Medication Reconciliation Form, Thank You Letter, Antibiotic Education, Prescription Opioid Use form. - Follow up: Private Physician; When: As needed; Reason: Recheck today's complaints, Re-evaluation by your physician. - Problem is new. - Symptoms have improved. Signatures: Dispatcher [employer] EDMart Moody MD MD rn Smirch, Shelby, RN RN ss Habalo, Winsy wh Wadley, Terrence, MD MD tw4 Corrections: (The following items were deleted from the chart) 10:53 10:20 08/30/2019 10:20 Discharged to Home. Impression: Suicidal ideations; Alcohol ss abuse with intoxication. Condition is Stable. Forms are Medication Reconciliation Form, Thank You Letter, Antibiotic Education, Prescription Opioid Use. Follow up: Private Physician; When: As needed; Reason: Recheck today's complaints, Re-evaluation by your physician. Problem is new. Symptoms have improved. rn
[2019-08-30 11:02] VITALS: BP 120/82; TEMP 97.2; O2SAT 98
== END 2019-08-30 10:53 | disposition home or self-care (01) ==
LOC: ER 23:15
DX: R45.851 Suicidal ideations (principal); F10.129 Alcohol abuse with intoxication, unspecified; F17.210 Nicotine dependence, cigarettes, uncomplicated
CPT/HCPCS: 93005; 85025; 80048; 36415; 80320 ×3; 80329 ×2; 81025; 85610; 80076; 80307 ×8; 85730; 81003; 96372; 99284; J3486; J7030